=== PATIENT | male | born 1965 | race Caucasian/White ===

== ENCOUNTER 2019-07-06 13:44 | Outpatient (CLI) | payer OTHER | END 2019-07-06 13:45 | disposition home or self-care (01) | LOC: COV 13:44 | PROVIDERS: ATTEND Family Medicine | DX: R05 Cough (principal); R50.9 Fever, unspecified | CPT/HCPCS: 81599 ==

== ENCOUNTER 2020-10-07 16:29 | Outpatient (CLI) | payer OTHER | END 2020-10-07 16:30 | disposition home or self-care (01) | LOC: COV 16:29 | PROVIDERS: ATTEND Family Medicine | DX: R50.9 Fever, unspecified (principal); M79.10 Myalgia, unspecified site; R53.83 Other fatigue; Z20.822 Contact with and (suspected) exposure to COVID-19 ==

== ENCOUNTER 2020-10-11 09:49 | Outpatient (CLI) | payer OTHER ==
--- NOTE | 2020-10-11 10:02 | XRAY Report ---
PROCEDURE: Chest 2 View X-Ray INDICATIONS: RIGHT LOWER PNEUMONIA TECHNIQUE: 2 view(s) of the chest. COMPARISON: None. FINDINGS: Surgical changes and devices: None. Lungs and pleura: No pleural effusions or pneumothorax. Ill-defined airspace opacity is seen in righ t lower lobe. Left lung is clear. Mediastinum: Mediastinal contours are normal. Heart size is normal. Bones and chest wall: No suspicious bony abnormalities. Soft tissues appear unremarkable. IMPRESSION: Small to moderate size right lower lobe infiltrate. No pleural effusion or pneumothorax. Reviewed by: Bernardo Banuelos MD on 10/11/2020 10:01 AM PDT Approved by: Bernardo Banuelos MD on 10/11/2020 10:01 AM PDT Station ID: [id number]
== END 2020-10-11 23:59 | disposition home or self-care (01) ==
LOC: DI.S 09:49
PROVIDERS: ATTEND Emergency Medicine
DX: J18.9 Pneumonia, unspecified organism (principal)

== ENCOUNTER 2020-10-11 21:22 | Inpatient (IN) | payer OTHER ==
--- NOTE | 2020-10-11 21:34 | ED Physician Documentation ---
PD HPI URI - Stated complaint Stated Complaint: SOA, FEVER, DIZZY - Chief complaint Chief Complaint: Fever - History obtained from History obtained from: Patient - History of Present Illness Timing - onset: How many days ago (5-6) Timing duration: Days (5-6) Timing details: Gradual onset, Still present Associated symptoms: Fever, Chills, Dry cough, Dyspnea. No: Chest pain, NVD Contributing factors: Other (denies cleaning out sheds/basement/etc, nor any travel.). No: Sick contact, Travel, Immunocompromised, COPD / asthma Improves by: Rest, Medication Worsened by: Breathing Similar symptoms before: Has not had sx before Recently seen: Clinic (walk in this morning with CXR showing pneumonia, Given IM med in clinic and Rx for some abx BID.) Review of Systems Constitutional: reports: Fever, Chills, Myalgias, Fatigue Nose: denies: Rhinorrhea / runny nose, Congestion Throat: denies: Sore throat Cardiac: denies: Chest pain / pressure Respiratory: reports: Dyspnea, Cough, Wheezing GI: reports: Nausea, Vomiting. denies: Abdominal Pain, Constipation, Diarrhea Skin: denies: Rash, Lesions Neurologic: reports: Generalized weakness, Confused, Altered mental status. denies: Near syncope, Headache, Head injury PD PAST MEDICAL HISTORY - Past Medical History Cardiovascular: None Respiratory: None Neuro: None Endocrine/Autoimmune: None - Allergies Allergies/Adverse Reactions: Allergies Allergy/AdvReac Type Severity Reaction Status Date / Time No Known Drug Allergies Allergy Verified 10/11/20 21:27 - Living Situation Living Situation: reports: With spouse/s.o., Other (usually active and healthy. Works as teacher. ) Living Arrangement: reports: At home - Social History Does the pt smoke?: No Does the pt drink ETOH?: No Does the pt have substance abuse?: No - Family History Family history: denies: CAD - POLST POLST Status: Full Code PD ED PE NORMAL - Vitals Vital signs reviewed: Yes (hypoxic and needs 4 lpm NC for sats >92%) - General General: Alert and oriented X 3, Well developed/nourished, Other (some somnolent and sluggish to answer questions. Does not appear in pain. ) - HEENT HEENT: Atraumatic, Ears normal, Moist mucous membranes, Pharynx benign - Neck Neck: Supple, no meningeal sign, No adenopathy - Cardiac Cardiac: RRR (tachycardic but regular. ), No murmur - Respiratory Respiratory: No: Clear bilaterally (expiratory wheezing at end expirations. Tachypneic. No accessory muscle use though. ) - Abdomen Abdomen: Soft, Non tender, Non distended - Back Back: No CVA TTP - Derm Derm: Normal color, Warm and dry - Extremities Extremities: No deformity, No tenderness to palpate, Normal ROM s pain, No edema, No calf tenderness / cord - Neuro Neuro: Alert and oriented X 3 (though sluggish/slow to answer), No motor deficit, No sensory deficit Results - Vitals Vitals: Vital Signs - 24 hr 10/11/20 10/11/20 10/11/20 21:27 21:31 22:16 Temperature 38.7 C H 38.7 C H Heart Rate 115 H 115 H 90 Respiratory 24 24 21 Rate Blood Pressure 164/85 H 164/85 H 163/84 H O2 Saturation 96 96 96 10/11/20 10/11/20 10/11/20 22:24 22:40 22:44 Temperature 37.4 C Heart Rate 88 92 Respiratory 26 H 20 Rate Blood Pressure 163/84 H 148/79 H O2 Saturation 95 96 10/11/20 10/11/20 22:46 23:00 Temperature Heart Rate 76 86 Respiratory 18 31 H Rate Blood Pressure 148/79 H O2 Saturation 95 Oxygen O2 Source Room air - Labs Labs: Laboratory Tests 10/11/20 10/11/20 10/11/20 21:45 21:45 21:45 WBC 12.2 H RBC 4.20 L Hgb 13.3 L Hct 35.9 L MCV 85.5 MCH 31.7 H MCHC 37.0 H RDW 11.3 L Plt Count 185 MPV 10.4 Neut # (Auto) 10.6 H Lymph # (Auto) 0.6 L [place] # (Auto) 0.7 Eos # (Auto) 0.0 Baso # (Auto) 0.1 Absolute Nucleated RBC 0.00 Nucleated RBC % 0.0 Sodium 112 L* Potassium 3.3 L Chloride 82 L Carbon Dioxide 17 L Anion Gap 13.0 BUN 11 Creatinine 1.0 Estimated GFR (MDRD) 78 L Glucose 127 H Lactic Acid 1.5 Calcium 7.9 L Total Bilirubin 1.2 H AST 217 H ALT 89 H Alkaline Phosphatase 71 C-Reactive Protein Total Protein 6.9 Albumin 3.3 Globulin 3.6 Albumin/Globulin Ratio 0.9 L Urine Color Urine Clarity Urine pH Ur Specific [place] Urine Protein Urine Glucose (UA) Urine Ketones Urine Occult Blood Urine Nitrite Urine Bilirubin Urine Urobilinogen Ur Leukocyte Esterase Urine RBC Urine WBC Ur Squamous Epith Cells Urine Bacteria Urine Casts Urine Culture Comments Nasal Adenovirus (PCR) Nasal B. parapertussis DNA (PCR) Nasal Coronavir 229E PCR Nasal Coronavir HKU1 PCR Nasal Coronavir NL63 PCR Nasal Coronavir OC43 PCR Nasal Enterovir/Rhinovir PCR Nasal Influenza B PCR Nasal Influenza A PCR Nasal Parainfluen 1 PCR Nasal Parainfluen 2 PCR Nasal Parainfluen 3 PCR Nasal Parainfluen 4 PCR Nasal RSV (PCR) Nasal B.pertussis DNA PCR Nasal C.pneumoniae (PCR) Adam Human Metapneumo PCR Nasal M.pneumoniae (PCR) Nasal SARS-CoV-2 (PCR) 10/11/20 10/11/20 10/11/20 21:45 22:34 22:50 WBC RBC Hgb Hct MCV MCH MCHC RDW Plt Count MPV Neut # (Auto) Lymph # (Auto) [place] # (Auto) Eos # (Auto) Baso # (Auto) Absolute Nucleated RBC Nucleated RBC % Sodium Potassium Chloride Carbon Dioxide Anion Gap BUN Creatinine Estimated GFR (MDRD) Glucose Lactic Acid Calcium Total Bilirubin AST ALT Alkaline Phosphatase C-Reactive Protein 25.3 H Total Protein Albumin Globulin Albumin/Globulin Ratio Urine Color YELLOW Urine Clarity CLEAR Urine pH 6.0 Ur Specific [place] 1.010 Urine Protein 100 H Urine Glucose (UA) NEGATIVE Urine Ketones 40 H Urine Occult Blood LARGE H Urine Nitrite NEGATIVE Urine Bilirubin NEGATIVE Urine Urobilinogen 0.2 (NORMAL) Ur Leukocyte Esterase NEGATIVE Urine RBC 0-5 Urine WBC 0-3 Ur Squamous Epith Cells RARE Squamous Urine Bacteria Rare Urine Casts 3-5 Course Granular Urine Culture Comments NOT INDICATED Nasal Adenovirus (PCR) NOT DETECTED Nasal B. parapertussis DNA (PCR) NOT DETECTED Nasal Coronavir 229E PCR NOT DETECTED Nasal Coronavir HKU1 PCR NOT DETECTED Nasal Coronavir NL63 PCR NOT DETECTED Nasal Coronavir OC43 PCR NOT DETECTED Nasal Enterovir/Rhinovir PCR DETECTED A Nasal Influenza B PCR NOT DETECTED Nasal Influenza A PCR NOT DETECTED Nasal Parainfluen 1 PCR NOT DETECTED Nasal Parainfluen 2 PCR NOT DETECTED Nasal Parainfluen 3 PCR NOT DETECTED Nasal Parainfluen 4 PCR NOT DETECTED Nasal RSV (PCR) NOT DETECTED Nasal B.pertussis DNA PCR NOT DETECTED Nasal C.pneumoniae (PCR) NOT DETECTED Adam Human Metapneumo PCR NOT DETECTED Nasal M.pneumoniae (PCR) NOT DETECTED Nasal SARS-CoV-2 (PCR) NOT DETECTED - Rads (name of study) chest xray Radiology: Prelim report reviewed (increasing RLL pneumonia.), See rad report PD MEDICAL DECISION MAKING - ED course Complexity details: reviewed results (sodium very low, so I changed the fluid bolus order to small bolus and then maintenance fluids.), considered differential (seems pneumonia and SIRS/sepsis. Also confused but no headache. ), d/w patient Departure - Departure Disposition: 66 [facility] DC/Xfer Clinical Impression: Acute hyponatremia, SIRS (systemic inflammatory response syndrome) Pneumonia Qualifiers: Pneumonia type: due to unspecified organism Laterality: right Lung location: lower lobe of lung Qualified Code(s): J18.9 - Pneumonia, unspecified organism Condition: Stable Record reviewed to determine appropriate education?: Yes Discharge Date/Time: 10/12/20 00:10
[2020-10-11] MEDS ORDERED: SODIUM CHLORIDE 0.9% IV STA (21:54)
[2020-10-11] MEDS ORDERED: cefTRIAXone 1 GM in SODIUM CHLORIDE 0.9% MINIBAG 100 ML IV STA (21:54)
[2020-10-11] MEDS ORDERED: AZITHROMYCIN INJ 500 MG in SODIUM CHLORIDE 0.9% 250 ML IV STA (21:54)
[2020-10-11] MEDS ORDERED: DEXAMETHASONE 10 MG/ML VIAL IVP STA (21:55)
[2020-10-11] MEDS ORDERED: ALBUTEROL NEB 2.5 MG/3 ML INH STA (21:55)
[2020-10-11] MEDS ORDERED: ACETAMINOPHEN 325 MG TABLET PO STA (21:56)
[2020-10-11] MEDS ORDERED: KETOROLAC 30 MG/ML VIAL IVP STA (21:56)
[2020-10-11] MEDS ORDERED: cefTRIAXone 1 GM VIAL ONE (22:03)
[2020-10-11 22:05] LABS: BASOPHILS # (AUTO) 0.1 10^3/uL (0.0-0.1); BASOPHILS % (AUTO) 0.5 %; EOSINOPHILS % (AUTO) 0.1 %; HCT - HEMATOCRIT 35.9 % (42.0-52.0); HGB - HEMOGLOBIN 13.3 g/dL (14.0-18.0); LYMPHOCYTES # (AUTO) 0.6 10^3/uL (1.5-3.5); LYMPHOCYTES % (AUTO) 4.8 %; MEAN CORPUSCULAR HEMOGLOBIN 31.7 pg (27.0-31.0); MEAN CORPUSCULAR VOLUME 85.5 fL (80.0-94.0); MEAN PLATELET VOLUME 10.4 fL (7.4-11.4); MONOCYTES # (AUTO) 0.7 10^3/uL (0.0-1.0); MONOCYTES % (AUTO) 5.7 %; NEUTROPHILS # (AUTO) 10.6 10^3/uL (1.5-6.6); NEUTROPHILS % (AUTO) 86.9 %; PLT - PLATELET COUNT 185 10^3/uL (130-450); RED CELL DISTRIBUTION WIDTH 11.3 % (12.0-15.0); WHITE BLOOD COUNT 12.2 x10^3/uL (4.8-10.8)
[2020-10-11 22:15] LABS: ALBUMIN 3.3 g/dL (3.2-5.5); ALBUMIN/GLOBULIN RATIO 0.9 (1.0-2.2); BILIRUBIN,TOTAL 1.2 mg/dL (0.2-1.0); CALCIUM 7.9 mg/dL (8.5-10.3); POTASSIUM 3.3 mmol/L (3.5-5.0); TOTAL PROTEIN 6.9 g/dL (6.7-8.2)
[2020-10-11] MEDS ORDERED: SODIUM CHLORIDE 0.9% 1,000 ML IV STA ×2 (22:36)
[2020-10-11] MEDS ORDERED: ONDANSETRON 4 MG/2 ML VIAL IVP PRN (23:03)
[2020-10-11] MEDS ORDERED: ACETAMINOPHEN 325 MG TABLET PO PRN (23:03)
[2020-10-11] MEDS ORDERED: ONDANSETRON ODT 4 MG TABLET TL PRN (23:03)
[2020-10-11 23:05] LABS: BILIRUBIN,URINE NEGATIVE (NEGATIVE); GLUCOSE, URINE (UA) NEGATIVE (NEGATIVE); KETONES,URINE (UA) 40 mg/dL (NEGATIVE); LEUKOCYTE ESTERASE, URINE NEGATIVE (NEGATIVE); NITRITE,URINE NEGATIVE (NEGATIVE); OCCULT BLOOD,URINE LARGE (NEGATIVE); PROTEIN,URINE 100 mg/dL (NEGATIVE); UROBILINOGEN,URINE 0.2 (NORMAL) E.U./dL (NORMAL)
[2020-10-11] MEDS ORDERED: POTASSIUM CHLORIDE 20 MEQ TABLET PO STA (23:06)
[2020-10-11 23:07] LABS: CLARITY,URINE CLEAR (CLEAR)
--- NOTE | 2020-10-11 23:07 | HISTORY & PHYSICAL EXAMINATION ---
Chief Complaint - Chief Complaint Chief Complaint: Feel ill. History of Present Illness - Admitted From Admitted From:: Home - History Obtained From Records Reviewed: Yes History obtained from: Patient, ER Physician, EMR - History of Present Illness HPI Comment/Other: This is a 55-year-old male with no significant past medical history who presents today complaining of feeling ill for the past 5 days. He states his symptoms began on Wednesday with fevers and chills. He was tested for Covid 2 days ago and this came back negative. He reports receiving the Sami & Sami vaccine a few months ago. He denies feeling short of breath but does report a cough. He has had associated fatigue, malaise. He reports no nausea or vomiting but has been having diarrhea the past few days as well. He is having 2-3 liquid bowel movements a day. He reports no chest pain, dysuria, urgency. He has had poor appetite and poor oral intake over the past few days as well. He has been taking Tylenol as needed for his fevers. Given his lack of improvement, he decided to come to the ER today. He reports no recent sick contacts. His and daughter at home are not ill. 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 In the emergency department, he was found to be febrile with a temperature of 38.7 C. He is tachycardic with a heart rate in the 110s. His blood pressure was 134/85. He was tachypneic with respiratory rate in the mid to high 20s but he was saturating well on room air. Labs were significant for white count of 12.2 with a left shift. His sodium was 112, potassium 3.3, chloride 82, bicarbonate 17. His total bilirubin was 1.2, AST 217, ALT 89. Chest x-ray revealed a right lower lobe infiltrate. Given the above findings, medicine was consulted for admission. History - Past Medical History Cardiovascular: reports: None Respiratory: reports: None Neuro: reports: None - Family & Social History Family History Comment/Other: He reports no significant family history to his knowledge. Denies a family history of cardiac disease or malignancy. Living arrangement: At home Living Situation: With family Social History Notes: He lives at home with his and daughter. 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 He denies any alcohol use. He reports a remote smoking history back in the 90s. - POLST Patient has POLST: No Meds/Allgy - Allergies Allergies/Adverse Reactions: Allergies Allergy/AdvReac Type Severity Reaction Status Date / Time No Known Drug Allergies Allergy Verified 10/11/20 21:27 Review of Systems - Constitutional Constitutional: reports: Fatigue, Fever, Chills, Malaise, Weakness, Poor appetite, Diaphoresis - Ears, Nose & Throat Ears, Nose & Throat: denies: Nasal discharge, Nasal congestion, Sore throat - Cardiovascular Cariovascular: denies: Chest pain, Edema, Exertional dyspnea, Decr. exercise tolerance - Respiratory Respiratory: reports: Cough. denies: Sputum production, SOB at rest, SOB with exertion - Gastrointestinal Gastrointestinal: reports: Diarrhea, Change in bowel habits, Poor appetite. denies: Abdominal pain, Black stools, Bloody stools, Nausea, Vomiting - Genitourinary Genitourinary: denies: Dysuria, Frequency, Urgency, Hematuria - Integumentary Integumentary: denies: Rash - Neurological Neurological: reports: General weakness. denies: Focal weakness - Hematologic/Lymphatic Hematologic/Lymphatic: denies: Bleeding tendencies - All Other Systems All Other Systems: reports: Reviewed and negative Prior Level of Functionality: He is independent with his ADLs. Exam - Vital Signs Reviewed Vital Signs: Yes Vital Signs: Vital Signs x48h Temp Pulse Resp BP Pulse Ox 10/11/20 23:00 86 31 H 148/79 H 95 10/11/20 22:46 76 18 10/11/20 22:44 96 10/11/20 22:40 92 20 148/79 H 10/11/20 22:24 37.4 C 88 26 H 163/84 H 95 10/11/20 22:16 90 21 163/84 H 96 10/11/20 21:31 38.7 C H 115 H 24 164/85 H 96 10/11/20 21:27 38.7 C H 115 H 24 164/85 H 96 - Physical Exam General Appearance: positive: Alert, Mild distress, Other (He is alert but does appear in some distress and appears ill overall. He is very diaphoretic.) Eyes Bilateral: positive: Normal inspection, Conjunctivae nml ENT: positive: Dry mucous membranes. negative: No signs of dehydration Neck: positive: Nml inspection Respiratory: positive: Rhonchi (Right lung field.), Other (He is tachypneic and in mild distress.). negative: No respiratory distress (He appears in mild respiratory distress), Wheezes, Rales Cardiovascular: positive: Regular rate & rhythm, No murmur. negative: Tachycardia, Systolic murmur Abdomen: positive: Non-tender, No distention. negative: Tenderness, Guarding, Rebound Skin: positive: Warm, Dry Extremities: positive: No pedal edema Neurologic/Psychiatric: positive: Other (No focal deficits.). negative: Disoriented to person, Disoriented to place, Disoriented to time Sepsis Event Note (H) - Evaluation Current Stage of Sepsis: Sepsis Possible source of Sepsis: positive: Pulmonary - Sepsis Criteria Sepsis Criteria: Recorded Temperature greater than 38.3C or Less than 36C, Recorded Heart Rate greater than 90 bpm, WBC count greater than 12,000 or less than 4000 Conclusion/Plan - Problem List (1) Sepsis Conclusion/Plan: This is secondary to community-acquired pneumonia. He presents with fever, tachycardia, leukocytosis. He is fortunately hemodynamically stable now and is actually hypertensive and his heart rate is improved. Lactic acid is normal. Blood cultures have been ordered and are pending. We will place him on ceftriaxone and azithromycin IV empirically for community-acquired pneumonia. Continue with gentle IV hydration. Follow-up blood cultures. Daily CBC. (2) Community acquired pneumonia Conclusion/Plan: This is the cause of his sepsis. There is high suspicion for Legionella given h is significant hyponatremia, elevated LFTs. His chest x-ray reveals a right lower lobe infiltrate. Fortunately, he is not hypoxic. We will place him on ceftriaxone and azithromycin IV empirically. Respiratory PCR panel is pending but he had a negative Covid test 2 days ago so low suspicion for this at the moment. We will check Legionella urine antigen. Monitor respiratory status closely. Qualifiers: Laterality: right Lung location: lower lobe of lung Qualified Code(s): J18.9 - Pneumonia, unspecified organism (3) Hyponatremia Conclusion/Plan: I suspect this is likely hypovolemic hyponatremia at this time given his lack of p.o. intake and he appears hypovolemic on exam. Although there is suspicion for Legionella and this can cause SIADH, we will gently hydrate him with normal saline at this time. We will repeat a BMP in 6 hours. If his sodium is trending in the wrong direction then we will hold IV fluids and place him on a fluid restriction and consider salt tablets. We will check a urine sodium. We will not obtain a urine osmolality as this is a send out lab and will not be available for a few days. (4) Abnormal LFTs Conclusion/Plan: His LFTs are elevated and this is suspected to be secondary to his pneumonia with a high suspicion for Legionnaire's disease. We will trend his LFTs and if they continue to rise we will obtain a right upper quadrant ultrasound. - Lab Results Lab results reviewed: Yes Fish Bones: 10/11/20 21:45 10/11/20 21:45 - Diagnostic Imaging Results Diagnostic Imaging Results: positive: Final report reviewed Core Measures - Anticipated LOS I expect patient to be DC'd or transferred within 96 hours.: Yes - Issues Hospital Issues and Management Plan: 55-year-old male presents with malaise and fever found to have right lower lobe pneumonia and hyponatremia. Concern is for Legionella and so we will admit him to intensive care unit for IV antibiotics with ceftriaxone and azithromycin. We will gently hydrate him for the hyponatremia at this time. - DVT/VTE - Prophylaxis VTE/DVT Device ordered at admit?: Yes VTE/DVT Prophylaxis med ordered at admit?: Yes
[2020-10-11 23:13] LABS: WBC,URINE 0-3 /HPF (0-3)
[2020-10-11 23:14] LABS: BACTERIA,URINE Rare /HPF (None Seen); CASTS, URINE 3-5 Course Granular /LPF; RBC,URINE 0-5 /HPF (0-5); SQUAMOUS EPITHELIAL CELL,UR RARE Squamous (<= Few)
[2020-10-11 23:31] LABS: B. PARAPERTUSSIS- RESP PCR PAN NOT DETECTED; B. PERTUSSIS- RESP PCR PANEL NOT DETECTED; C. PNEUMONIAE- RESP PCR PANEL NOT DETECTED; CORONAVIRUS 229E-RESP PCR NOT DETECTED; CORONAVIRUS HKU1-RESP PCR NOT DETECTED; CORONAVIRUS NL63-RESP PCR NOT DETECTED; CORONAVIRUS OC43-RESP PCR NOT DETECTED; HUMAN METAPNEUMOVIRUS NOT DETECTED; INFLUENZA A- RESP PCR PANEL NOT DETECTED; INFLUENZA B - RESP PCR PANEL NOT DETECTED; M. PNEUMONIAE- RESP PCR PANEL NOT DETECTED; PARAINFLUENZA VIRUS 1 NOT DETECTED; PARAINFLUENZA VIRUS 2 NOT DETECTED; PARAINFLUENZA VIRUS 3 NOT DETECTED; PARAINFLUENZA VIRUS 4 NOT DETECTED; RHINOVIRUS/ENTEROVIRUS DETECTED; RSV- RESP PCR PANEL NOT DETECTED; SARS-CoV-2 -RESP PCR PANEL NOT DETECTED
[2020-10-11] MEDS ORDERED: IBUPROFEN 400 MG TABLET PO PRN (23:41)
[2020-10-11] MEDS ORDERED: SODIUM CHLORIDE 0.9% 1,000 ML IV SCH (23:45)
[2020-10-12 00:20] LABS: CALCIUM 7.5 mg/dL (8.5-10.3); URIC ACID 5.2 mg/dL (2.6-7.2)
[2020-10-12] MEDS ORDERED: POTASSIUM CHLORIDE 20 MEQ TABLET PO ONE ×2 (00:44→18:09)
[2020-10-12] MEDS ORDERED: CALCIUM GLUCONATE 1,000 MG in SODIUM CHLORIDE 0.9% 50 ML IV ONE (00:44)
[2020-10-12] MEDS ORDERED: CALCIUM GLUCONATE 1000 MG/10 ML VIAL ONE (00:58)
[2020-10-12] MEDS: SODIUM CHLORIDE FLUSH 0.9% 10 ML SYRINGE IVP SCH ×3 (04:45→16:19)
[2020-10-12 04:52] LABS: BASOPHILS % (AUTO) 0.4 %; EOSINOPHILS % (AUTO) 0.2 %; HCT - HEMATOCRIT 38.2 % (42.0-52.0); HGB - HEMOGLOBIN 13.7 g/dL (14.0-18.0); LYMPHOCYTES # (AUTO) 0.6 10^3/uL (1.5-3.5); LYMPHOCYTES % (AUTO) 5.3 %; MEAN CORPUSCULAR HEMOGLOBIN 31.6 pg (27.0-31.0); MEAN CORPUSCULAR HGB CONC 35.9 g/dL (32.0-36.0); MEAN CORPUSCULAR VOLUME 88.2 fL (80.0-94.0); MEAN PLATELET VOLUME 10.5 fL (7.4-11.4); MONOCYTES # (AUTO) 0.4 10^3/uL (0.0-1.0); MONOCYTES % (AUTO) 3.9 %; NEUTROPHILS # (AUTO) 9.8 10^3/uL (1.5-6.6); NEUTROPHILS % (AUTO) 88.3 %; PLT - PLATELET COUNT 159 10^3/uL (130-450); RED BLOOD COUNT 4.33 10^6/uL (4.70-6.10); RED CELL DISTRIBUTION WIDTH 11.3 % (12.0-15.0); WHITE BLOOD COUNT 11.1 x10^3/uL (4.8-10.8)
[2020-10-12 05:07] LABS: ALBUMIN 3.3 g/dL (3.2-5.5); BILIRUBIN,DIRECT 0.2 mg/dL (0.1-0.5); BILIRUBIN,TOTAL 0.9 mg/dL (0.2-1.0); CALCIUM 8.1 mg/dL (8.5-10.3); CREATININE 0.9 mg/dL (0.6-1.2); MAGNESIUM 2.5 mg/dL (1.7-2.8); PHOSPHORUS 2.8 mg/dL (2.5-4.6); POTASSIUM 3.5 mmol/L (3.5-5.0); TOTAL PROTEIN 6.9 g/dL (6.7-8.2)
--- NOTE | 2020-10-12 08:22 | XRAY Report ---
PROCEDURE: Chest 1 View X-Ray INDICATIONS: chest pain TECHNIQUE: One view of the chest was acquired. COMPARISON: Earlier on 10/11/2020 FINDINGS: Surgical changes and devices: None. Lungs and pleura: No pleural effusions or pneumothorax. Worsening consolidation, right lung base. Mediastinum: Mediastinal contours appear normal. Heart size is normal. Bones and chest wall: No suspicious bony lesions. Overlying soft tissues appear unremarkable. IMPRESSION: Worsening right basilar pneumonia. A preliminary report with the above findings was provided at the time of the study by [facility]. Reviewed by: Shayan Ann MD on 10/12/2020 7:21 AM MELVIN Approved by: Shayan Ann MD on 10/12/2020 7:21 AM MELVIN Station ID: [id number]
[2020-10-12] MEDS: ENOXAPARIN 40 MG/0.4 ML SYRINGE SUBQ SCH (08:31)
[2020-10-12 10:10] LABS: CALCIUM 8.4 mg/dL (8.5-10.3); CREATININE 0.9 mg/dL (0.6-1.2); POTASSIUM 3.6 mmol/L (3.5-5.0)
--- NOTE | 2020-10-12 11:53 | PHARMACY PROGRESS NOTE ---
- Best Possible Medication History Admit Date and Time: 10/11/20 1815 Processed by: Pharmacy Medication History completed: Yes Patient Interview: Completed Secondary Source(s): Other family member, Pharmacy records As the person ultimately responsible for medication therapy, providers are able to order a medication from an existing home medication list in [facility] via the "Reconcile Routine" prior to Confirmation of that medication by production support manager. Such practice is discouraged except when the physician, in their clinical judgment, deems that a medical need exists for a medication without regard to previous use.
--- NOTE | 2020-10-12 13:10 | PROVIDER PROGRESS NOTE ---
Subjective - Prog Note Date Prog Note Date: 10/12/20 Prog Note Time: 13:09 - Subjective Pt reports feeling: Improved (Biggest complaint is a discomfort due to hyperactive bowel activity. But he does deny abdominal pain, nausea or vomiting.) Subjective: Interestingly, despite the diagnosis of pneumonia, he denies any cough, shor tness of breath or other respiratory symptoms. Current Medications - Current Medications Current Medications: Current Medications Generic Name Dose Route Start Last Admin Trade Name Freq PRN Reason Stop Dose Admin Enoxaparin Sodium 40 mg 10/12/20 09:00 10/12/20 08:31 Enoxaparin 40 Mg/0.4 Ml Syringe SUBQ 40 mg DAILY SILVANA Administration Sodium Chloride 10 ml 10/12/20 01:00 10/12/20 08:33 Sodium Chloride Flush 0.9% 10 Ml Syringe IVP Not Given 0100,0900,1700 SILVANA Objective - Vital Signs/Intake & Output Reviewed Vital Signs: Yes Vital Signs: Vital Signs x48h Temp Pulse Resp BP Pulse Ox 10/12/20 12:00 88 22 142/94 H 98 10/12/20 11:00 76 20 118/94 H 100 10/12/20 10:00 71 15 118/84 H 100 10/12/20 08:00 79 23 130/87 H 98 10/12/20 07:51 64 17 148/86 H 98 10/12/20 07:45 36.6 C 10/12/20 06:00 64 23 162/97 H 98 Intake & Output: Intake & Output 10/09/20 10/10/20 10/11/20 10/12/20 23:59 23:59 23:59 23:59 Intake Total 1200 7447.433 Output Total 3100 Balance 1200 4347.433 - Objective General Appearance: positive: No acute distress, Lethargic (Was sleeping deeply when I arrived to examine him, but he did wake up and arouse appropriately.) Eyes Bilateral: positive: Normal inspection ENT: positive: ENT inspection nml Neck: positive: Nml inspection Respiratory: positive: Chest non-tender Cardiovascular: positive: Regular rate & rhythm, No murmur, No gallop Abdomen: positive: Non-tender, No organomegaly. negative: Nml bowel sounds (Hypoactive bowel sounds), No distention (Mildly distended versus obese) Back: positive: Nml inspection Skin: positive: Color nml, No rash, Warm Neurologic/Psychiatric: positive: Oriented x3 - Lab Results Fish Bones: 10/12/20 04:20 10/12/20 09:55 Other Labs: Lab Results x24hrs 10/12/20 10/12/20 10/12/20 Range/Units 12:00 09:55 07:50 WBC (4.8-10.8) x10^3/uL RBC (4.70-6.10) 10^6/uL Hgb (14.0-18.0) g/dL Hct (42.0-52.0) % MCV (80.0-94.0) fL MCH (27.0-31.0) pg MCHC (32.0-36.0) g/dL RDW (12.0-15.0) % Plt Count (130-450) 10^3/uL MPV (7.4-11.4) fL Neut # (Auto) (1.5-6.6) 10^3/uL Lymph # (Auto) (1.5-3.5) 10^3/uL [facility] [place] # (Auto) (0.0-1.0) 10^3/uL Eos # (Auto) (0.0-0.7) 10^3/uL Baso # (Auto) (0.0-0.1) 10^3/uL Absolute Nucleated RBC x10^3/uL Nucleated RBC % /100WBC Sodium 124 L (135-145) mmol/L Potassium 3.6 (3.5-5.0) mmol/L Chloride 94 L (101-111) mmol/L Carbon Dioxide 22 (21-32) mmol/L Anion Gap 8.0 (6-13) BUN 14 (6-20) mg/dL Creatinine 0.9 (0.6-1.2) mg/dL Estimated GFR (MDRD) 88 L (>89) Glucose 207 H (70-100) mg/dL POC Whole Bld Glucose 195 H 134 H (70 - 100) mg/dL Lactic Acid (0.5-2.2) mmol/L Uric Acid (2.6-7.2) mg/dL Calcium 8.4 L (8.5-10.3) mg/dL Phosphorus (2.5-4.6) mg/dL Magnesium (1.7-2.8) mg/dL Total Bilirubin (0.2-1.0) mg/dL Direct Bilirubin (0.1-0.5) mg/dL AST (10-42) IU/L ALT (10-60) IU/L Alkaline Phosphatase (42-121) IU/L C-Reactive Protein (0-1.0) mg/dL Total Protein (6.7-8.2) g/dL Albumin (3.2-5.5) g/dL Globulin (2.1-4.2) g/dL Albumin/Globulin Ratio (1.0-2.2) Urine Color Urine Clarity (CLEAR) Urine pH (5.0-7.5) PH Ur Specific [place] (1.002-1.030) Urine Protein (NEGATIVE) mg/dL Urine Glucose (UA) (NEGATIVE) mg/dL Urine Ketones (NEGATIVE) mg/dL Urine Occult Blood (NEGATIVE) Urine Nitrite (NEGATIVE) Urine Bilirubin (NEGATIVE) Urine Urobilinogen (NORMAL) E.U./dL Ur Leukocyte Esterase (NEGATIVE) Urine RBC (0-5) /HPF Urine WBC (0-3) /HPF Ur Squamous Epith Cells (<= Few) Urine Bacteria (None Seen) /HPF Urine Casts /LPF Urine Culture Comments Urine Sodium mmol/L Nasal Adenovirus (PCR) Nasal B. parapertussis DNA (PCR) Nasal Coronavir 229E PCR Nasal Coronavir HKU1 PCR Nasal Coronavir NL63 PCR Nasal Coronavir OC43 PCR Nasal Enterovir/Rhinovir PCR Nasal Influenza B PCR Nasal Influenza A PCR Nasal Parainfluen 1 PCR Nasal Parainfluen 2 PCR Nasal Parainfluen 3 PCR Nasal Parainfluen 4 PCR Nasal RSV (PCR) Nasal Screen MRSA (PCR) (NEGATIVE) Nasal B.pertussis DNA PCR Nasal C.pneumoniae (PCR) Adam Human Metapneumo PCR Nasal M.pneumoniae (PCR) Nasal SARS-CoV-2 (PCR) 10/12/20 10/12/20 10/12/20 Range/Units 04:20 04:20 04:00 WBC 11.1 H (4.8-10.8) x10^3/uL RBC 4.33 L (4.70-6.10) 10^6/uL Hgb 13.7 L (14.0-18.0) g/dL Hct 38.2 L (42.0-52.0) % MCV 88.2 (80.0-94.0) fL MCH 31.6 H (27.0-31.0) pg MCHC 35.9 (32.0-36.0) g/dL RDW 11.3 L (12.0-15.0) % Plt Count 159 (130-450) 10^3/uL MPV 10.5 (7.4-11.4) fL Neut # (Auto) 9.8 H (1.5-6.6) 10^3/uL Lymph # (Auto) 0.6 L (1.5-3.5) 10^3/uL [facility] [place] [facility] # (Auto) 0.4 (0.0-1.0) 10^3/uL Eos # (Auto) 0.0 (0.0-0.7) 10^3/uL Baso # (Auto) 0.0 (0.0-0.1) 10^3/uL Absolute Nucleated RBC 0.00 x10^3/uL Nucleated RBC % 0.0 /100WBC Sodium 121 L (135-145) mmol/L Potassium 3.5 (3.5-5.0) mmol/L Chloride 90 L (101-111) mmol/L Carbon Dioxide 21 (21-32) mmol/L Anion Gap 10.0 (6-13) BUN 12 (6-20) mg/dL Creatinine 0.9 (0.6-1.2) mg/dL Estimated GFR (MDRD) 88 L (>89) Glucose 141 H (70-100) mg/dL POC Whole Bld Glucose (70 - 100) mg/dL Lactic Acid (0.5-2.2) mmol/L Uric Acid (2.6-7.2) mg/dL Calcium 8.1 L (8.5-10.3) mg/dL Phosphorus 2.8 (2.5-4.6) mg/dL Magnesium 2.5 (1.7-2.8) mg/dL Total Bilirubin 0.9 (0.2-1.0) mg/dL Direct Bilirubin 0.2 (0.1-0.5) mg/dL AST 229 H (10-42) IU/L ALT 99 H (10-60) IU/L Alkaline Phosphatase 71 (42-121) IU/L C-Reactive Protein (0-1.0) mg/dL Total Protein 6.9 (6.7-8.2) g/dL Albumin 3.3 (3.2-5.5) g/dL Globulin 3.6 (2.1-4.2) g/dL Albumin/Globulin Ratio (1.0-2.2) Urine Color Urine Clarity (CLEAR) Urine pH (5.0-7.5) PH Ur Specific [place] (1.002-1.030) Urine Protein (NEGATIVE) mg/dL Urine Glucose (UA) (NEGATIVE) mg/dL Urine Ketones (NEGATIVE) mg/dL Urine Occult Blood (NEGATIVE) Urine Nitrite (NEGATIVE) Urine Bilirubin (NEGATIVE) Urine Urobilinogen (NORMAL) E.U./dL Ur Leukocyte Esterase (NEGATIVE) Urine RBC (0-5) /HPF Urine WBC (0-3) /HPF Ur Squamous Epith Cells (<= Few) Urine Bacteria (None Seen) /HPF Urine Casts /LPF Urine Culture Comments Urine Sodium < 12.0 mmol/L Nasal Adenovirus (PCR) Nasal B. parapertussis DNA (PCR) Nasal Coronavir 229E PCR Nasal Coronavir HKU1 PCR Nasal Coronavir NL63 PCR Nasal Coronavir OC43 PCR Nasal Enterovir/Rhinovir PCR Nasal Influenza B PCR Nasal Influenza A PCR Nasal Parainfluen 1 PCR Nasal Parainfluen 2 PCR Nasal Parainfluen 3 PCR Nasal Parainfluen 4 PCR Nasal RSV (PCR) Nasal Screen MRSA (PCR) (NEGATIVE) Nasal B.pertussis DNA PCR Nasal C.pneumoniae (PCR) Adam Human Metapneumo PCR Nasal M.pneumoniae (PCR) Nasal SARS-CoV-2 (PCR) 10/12/20 10/11/20 10/11/20 Range/Units 00:25 23:59 22:50 WBC (4.8-10.8) x10^3/uL RBC (4.70-6.10) 10^6/uL Hgb (14.0-18.0) g/dL Hct (42.0-52.0) % MCV (80.0-94.0) fL MCH (27.0-31.0) pg MCHC (32.0-36.0) g/dL RDW (12.0-15.0) % Plt Count (130-450) 10^3/uL MPV (7.4-11.4) fL Neut # (Auto) (1.5-6.6) 10^3/uL Lymph # (Auto) (1.5-3.5) 10^3/uL [facility] # (Auto) (0.0-1.0) 10^3/uL Eos # (Auto) (0.0-0.7) 10^3/uL Baso # (Auto) (0.0-0.1) 10^3/uL Absolute Nucleated RBC x10^3/uL Nucleated RBC % /100WBC Sodium 114 L* (135-145) mmol/L Potassium 3.0 L (3.5-5.0) mmol/L Chloride 85 L (101-111) mmol/L Carbon Dioxide 16 L (21-32) mmol/L Anion Gap 13.0 (6-13) BUN 11 (6-20) mg/dL Creatinine 1.0 (0.6-1.2) mg/dL Estimated GFR (MDRD) 78 L (>89) Glucose 128 H (70-100) mg/dL POC Whole Bld Glucose (70 - 100) mg/dL Lactic Acid (0.5-2.2) mmol/L Uric Acid 5.2 (2.6-7.2) mg/dL Calcium 7.5 L (8.5-10.3) mg/dL Phosphorus (2.5-4.6) mg/dL Magnesium (1.7-2.8) mg/dL Total Bilirubin (0.2-1.0) mg/dL Direct Bilirubin (0.1-0.5) mg/dL AST (10-42) IU/L ALT (10-60) IU/L Alkaline Phosphatase (42-121) IU/L C-Reactive Protein (0-1.0) mg/dL Total Protein (6.7-8.2) g/dL Albumin (3.2-5.5) g/dL Globulin (2.1-4.2) g/dL Albumin/Globulin Ratio (1.0-2.2) Urine Color YELLOW Urine Clarity CLEAR (CLEAR) Urine pH 6.0 (5.0-7.5) PH Ur Specific [place] 1.010 (1.002-1.030) Urine Protein 100 H (NEGATIVE) mg/dL Urine Glucose (UA) NEGATIVE (NEGATIVE) mg/dL Urine Ketones 40 H (NEGATIVE) mg/dL Urine Occult Blood LARGE H (NEGATIVE) Urine Nitrite NEGATIVE (NEGATIVE) Urine Bilirubin NEGATIVE (NEGATIVE) Urine Urobilinogen 0.2 (NORMAL) (NORMAL) E.U./dL Ur Leukocyte Esterase NEGATIVE (NEGATIVE) Urine RBC 0-5 (0-5) /HPF Urine WBC 0-3 (0-3) /HPF Ur Squamous Epith Cells RARE Squamous (<= Few) Urine Bacteria Rare (None Seen) /HPF Urine Casts 3-5 Course Granular /LPF Urine Culture Comments NOT INDICATED Urine Sodium mmol/L Nasal Adenovirus (PCR) Nasal B. parapertussis DNA (PCR) Nasal Coronavir 229E PCR Nasal Coronavir HKU1 PCR Nasal Coronavir NL63 PCR Nasal Coronavir OC43 PCR Nasal Enterovir/Rhinovir PCR Nasal Influenza B PCR Nasal Influenza A PCR Nasal Parainfluen 1 PCR Nasal Parainfluen 2 PCR Nasal Parainfluen 3 PCR Nasal Parainfluen 4 PCR Nasal RSV (PCR) Nasal Screen MRSA (PCR) NEGATIVE (NEGATIVE) Nasal B.pertussis DNA PCR Nasal C.pneumoniae (PCR) Adam Human Metapneumo PCR Nasal M.pneumoniae (PCR) Nasal SARS-CoV-2 (PCR) 10/11/20 10/11/20 10/11/20 Range/Units 22:34 21:45 21:45 WBC (4.8-10.8) x10^3/uL RBC (4.70-6.10) 10^6/uL Hgb (14.0-18.0) g/dL Hct (42.0-52.0) % MCV (80.0-94.0) fL MCH (27.0-31.0) pg MCHC (32.0-36.0) g/dL RDW (12.0-15.0) % Plt Count (130-450) 10^3/uL MPV (7.4-11.4) fL Neut # (Auto) (1.5-6.6) 10^3/uL Lymph # (Auto) (1.5-3.5) 10^3/uL [facility] # (Auto) (0.0-1.0) 10^3/uL Eos # (Auto) (0.0-0.7) 10^3/uL Baso # (Auto) (0.0-0.1) 10^3/uL Absolute Nucleated RBC x10^3/uL Nucleated RBC % /100WBC Sodium (135-145) mmol/L Potassium (3.5-5.0) mmol/L Chloride (101-111) mmol/L Carbon Dioxide (21-32) mmol/L Anion Gap (6-13) BUN (6-20) mg/dL Creatinine (0.6-1.2) mg/dL Estimated GFR (MDRD) (>89) Glucose (70-100) mg/dL POC Whole Bld Glucose (70 - 100) mg/dL Lactic Acid 1.5 (0.5-2.2) mmol/L Uric Acid (2.6-7.2) mg/dL Calcium (8.5-10.3) mg/dL Phosphorus (2.5-4.6) mg/dL Magnesium (1.7-2.8) mg/dL Total Bilirubin (0.2-1.0) mg/dL Direct Bilirubin (0.1-0.5) mg/dL AST (10-42) IU/L ALT (10-60) IU/L Alkaline Phosphatase (42-121) IU/L C-Reactive Protein 25.3 H (0-1.0) mg/dL Total Protein (6.7-8.2) g/dL Albumin (3.2-5.5) g/dL Globulin (2.1-4.2) g/dL Albumin/Globulin Ratio (1.0-2.2) Urine Color Urine Clarity (CLEAR) Urine pH (5.0-7.5) PH Ur Specific [place] (1.002-1.030) Urine Protein (NEGATIVE) mg/dL Urine Glucose (UA) (NEGATIVE) mg/dL Urine Ketones (NEGATIVE) mg/dL Urine Occult Blood (NEGATIVE) Urine Nitrite (NEGATIVE) Urine Bilirubin (NEGATIVE) Urine Urobilinogen (NORMAL) E.U./dL Ur Leukocyte Esterase (NEGATIVE) Urine RBC (0-5) /HPF Urine WBC (0-3) /HPF Ur Squamous Epith Cells (<= Few) Urine Bacteria (None Seen) /HPF Urine Casts /LPF Urine Culture Comments Urine Sodium mmol/L Nasal Adenovirus (PCR) NOT DETECTED Nasal B. parapertussis DNA (PCR) NOT DETECTED Nasal Coronavir 229E PCR NOT DETECTED Nasal Coronavir HKU1 PCR NOT DETECTED Nasal Coronavir NL63 PCR NOT DETECTED Nasal Coronavir OC43 PCR NOT DETECTED Nasal Enterovir/Rhinovir PCR DETECTED A Nasal Influenza B PCR NOT DETECTED Nasal Influenza A PCR NOT DETECTED Nasal Parainfluen 1 PCR NOT DETECTED Nasal Parainfluen 2 PCR NOT DETECTED Nasal Parainfluen 3 PCR NOT DETECTED Nasal Parainfluen 4 PCR NOT DETECTED Nasal RSV (PCR) NOT DETECTED Nasal Screen MRSA (PCR) (NEGATIVE) Nasal B.pertussis DNA PCR NOT DETECTED Nasal C.pneumoniae (PCR) NOT DETECTED Adam Human Metapneumo PCR NOT DETECTED Nasal M.pneumoniae (PCR) NOT DETECTED Nasal SARS-CoV-2 (PCR) NOT DETECTED 10/11/20 10/11/20 Range/Units 21:45 21:45 WBC 12.2 H (4.8-10.8) x10^3/uL RBC 4.20 L (4.70-6.10) 10^6/uL Hgb 13.3 L (14.0-18.0) g/dL Hct 35.9 L (42.0-52.0) % MCV 85.5 (80.0-94.0) fL MCH 31.7 H (27.0-31.0) pg MCHC 37.0 H (32.0-36.0) g/dL RDW 11.3 L (12.0-15.0) % Plt Count 185 (130-450) 10^3/uL MPV 10.4 (7.4-11.4) fL Neut # (Auto) 10.6 H (1.5-6.6) 10^3/uL Lymph # (Auto) 0.6 L (1.5-3.5) 10^3/uL [facility] [place] [facility] # (Auto) 0.7 (0.0-1.0) 10^3/uL Eos # (Auto) 0.0 (0.0-0.7) 10^3/uL Baso # (Auto) 0.1 (0.0-0.1) 10^3/uL Absolute Nucleated RBC 0.00 x10^3/uL Nucleated RBC % 0.0 /100WBC Sodium 112 L* (135-145) mmol/L Potassium 3.3 L (3.5-5.0) mmol/L Chloride 82 L (101-111) mmol/L Carbon Dioxide 17 L (21-32) mmol/L Anion Gap 13.0 (6-13) BUN 11 (6-20) mg/dL Creatinine 1.0 (0.6-1.2) mg/dL Estimated GFR (MDRD) 78 L (>89) Glucose 127 H (70-100) mg/dL POC Whole Bld Glucose (70 - 100) mg/dL Lactic Acid (0.5-2.2) mmol/L Uric Acid (2.6-7.2) mg/dL Calcium 7.9 L (8.5-10.3) mg/dL Phosphorus (2.5-4.6) mg/dL Magnesium (1.7-2.8) mg/dL Total Bilirubin 1.2 H (0.2-1.0) mg/dL Direct Bilirubin (0.1-0.5) mg/dL AST 217 H (10-42) IU/L ALT 89 H (10-60) IU/L Alkaline Phosphatase 71 (42-121) IU/L C-Reactive Protein (0-1.0) mg/dL Total Protein 6.9 (6.7-8.2) g/dL Albumin 3.3 (3.2-5.5) g/dL Globulin 3.6 (2.1-4.2) g/dL Albumin/Globulin Ratio 0.9 L (1.0-2.2) Urine Color Urine Clarity (CLEAR) Urine pH (5.0-7.5) PH Ur Specific [place] (1.002-1.030) Urine Protein (NEGATIVE) mg/dL Urine Glucose (UA) (NEGATIVE) mg/dL Urine Ketones (NEGATIVE) mg/dL Urine Occult Blood (NEGATIVE) Urine Nitrite (NEGATIVE) Urine Bilirubin (NEGATIVE) Urine Urobilinogen (NORMAL) E.U./dL Ur Leukocyte Esterase (NEGATIVE) Urine RBC (0-5) /HPF Urine WBC (0-3) /HPF Ur Squamous Epith Cells (<= Few) Urine Bacteria (None Seen) /HPF Urine Casts /LPF Urine Culture Comments Urine Sodium mmol/L Nasal Adenovirus (PCR) Nasal B. parapertussis DNA (PCR) Nasal Coronavir 229E PCR Nasal Coronavir HKU1 PCR Nasal Coronavir NL63 PCR Nasal Coronavir OC43 PCR Nasal Enterovir/Rhinovir PCR Nasal Influenza B PCR Nasal Influenza A PCR Nasal Parainfluen 1 PCR Nasal Parainfluen 2 PCR Nasal Parainfluen 3 PCR Nasal Parainfluen 4 PCR Nasal RSV (PCR) Nasal Screen MRSA (PCR) (NEGATIVE) Nasal B.pertussis DNA PCR Nasal C.pneumoniae (PCR) Adam Human Metapneumo PCR Nasal M.pneumoniae (PCR) Nasal SARS-CoV-2 (PCR) - Diagnostic Imaging Diagnostic Imaging Results: positive: Prelim report reviewed ABX Reporting Has patient been on IV antibiotics over the past 48 hours?: Yes Sepsis Event Note (H) - Evaluation Current Stage of Sepsis: Sepsis Possible source of Sepsis: positive: Pulmonary - Sepsis Criteria Sepsis Criteria: Recorded Temperature greater than 38.3C or Less than 36C, Recorded Heart Rate greater than 90 bpm, WBC count greater than 12,000 or less than 4000 Assessment/Plan - Problem List (1) Sepsis Impression: Sepsis secondary to community-acquired pneumonia presenting with fever tachycardia and leukocytosis. He is hemodynamically stable and surprisingly somewhat asymptomatic from the pneumonia point of view. Seems to be improved compared with overnight in terms of overall not appearing toxic or ill. We will continue ceftriaxone and azithromycin while hospitalized as we are still correcting his sodium level and despite his lack of oxygen requirement given his initial presentation I think it is reasonable to keep him here another 24 hours. Qualifiers: Sepsis acute organ dysfunction status: without acute organ dysfunction (2) Abnormal LFTs Impression: Likely secondary to sepsis although there is some consideration for legionnaires given his presentation with abdominal symptoms including diarrhea. Trend labs. Follow-up Urine Legionella antigen (3) Acute hyponatremia Impression: Significant hyponatremia with initial presenting sodium level of 112, which has already corrected to 125. Underlying etiology is likely secondary to hypovolemia in the setting of infection rather than the true etiology being in the infection itself given how quickly corrected with volume replacement. We will continue to follow-up labs and will check a repeat BMP in 6 hours. (4) Community acquired pneumonia Impression: Saturating well on room air. Continue IV ceftriaxone and Rocephin. As above follow-up Legionella urine antigen Qualifiers: Laterality: right Lung location: lower lobe of lung Qualified Code(s): J18.9 - Pneumonia, unspecified organism
[2020-10-12] MEDS: SIMETHICONE CHEW 80 MG TABLET PO PRN (13:32)
[2020-10-12 14:21] LABS: CALCIUM 8.6 mg/dL (8.5-10.3); CREATININE 0.9 mg/dL (0.6-1.2); POTASSIUM 3.8 mmol/L (3.5-5.0)
[2020-10-12] MEDS: ALBUTEROL NEB 2.5 MG/3 ML INH PRN ×2 (14:39→19:08)
[2020-10-12] MEDS ORDERED: IPRATROPIUM/ALBUTEROL 3 ML NEB INH PRN ×2 (15:38→18:56)
[2020-10-12] MEDS: BACLOFEN 10 MG TABLET PO PRN ×2 (15:55→20:33)
[2020-10-12] MEDS ORDERED: FUROSEMIDE 20 MG/2 ML VIAL IVP ONE (16:00)
[2020-10-12 16:28] LABS: CALCIUM 8.6 mg/dL (8.5-10.3); CREATININE 0.9 mg/dL (0.6-1.2); POTASSIUM 3.2 mmol/L (3.5-5.0)
--- NOTE | 2020-10-12 18:18 | CONSULTATION NOTE ---
Consultation Report: Call for assist with IV placement, plan of care includes IV antibiotic and diuretics after transfer out of ICU. Pt with history of difficult IV starts as well as multiple failed attempts t/o both upper extremities. Attempt L AC/FA x 2 with US. Unable to thread catheter after flash. Attempt x2 R AC, Brachial. 20ga 1.88" placed at R Brachial with US. Easily aspirates and flushes blood after cap placement. Secured with tape, tegaderm. Pt tolerated procedure without complaint, complication.
[2020-10-12] MEDS ORDERED: LIDO GARGLE 30 ML BOTTLE ONE (18:32)
[2020-10-12] MEDS ORDERED: chlorproMAZINE 25 MG TABLET PO PRN (19:44)
[2020-10-12] MEDS ORDERED: DEXTROSE 5%-0.45% NACL 1,000 ML IV SCH (20:00)
[2020-10-12] MEDS: AZITHROMYCIN INJ 500 MG in SODIUM CHLORIDE 0.9% 250 ML IV SCH (20:28)
[2020-10-12] MEDS: cefTRIAXone 2 GM in SODIUM CHLORIDE 0.9% MINIBAG 100 ML IV SCH (22:24)
[2020-10-12 22:57] LABS: CALCIUM 8.1 mg/dL (8.5-10.3); CREATININE 0.9 mg/dL (0.6-1.2); POTASSIUM 3.6 mmol/L (3.5-5.0)
[2020-10-13] MEDS: SODIUM CHLORIDE 0.9% 1,000 ML IV SCH ×2 (00:59→11:53)
[2020-10-13] MEDS: SODIUM CHLORIDE FLUSH 0.9% 10 ML SYRINGE IVP SCH ×3 (01:01→17:13)
[2020-10-13] MEDS: IPRATROPIUM/ALBUTEROL 3 ML NEB INH PRN ×3 (01:20→18:58)
[2020-10-13 04:44] LABS: BASOPHILS # (AUTO) 0.1 10^3/uL (0.0-0.1); BASOPHILS % (AUTO) 0.4 %; EOSINOPHILS % (AUTO) 0.2 %; HCT - HEMATOCRIT 36.8 % (42.0-52.0); HGB - HEMOGLOBIN 13.1 g/dL (14.0-18.0); LYMPHOCYTES # (AUTO) 0.9 10^3/uL (1.5-3.5); LYMPHOCYTES % (AUTO) 6.2 %; MEAN CORPUSCULAR HEMOGLOBIN 31.6 pg (27.0-31.0); MEAN CORPUSCULAR HGB CONC 35.6 g/dL (32.0-36.0); MEAN CORPUSCULAR VOLUME 88.7 fL (80.0-94.0); MEAN PLATELET VOLUME 10.4 fL (7.4-11.4); MONOCYTES # (AUTO) 1.4 10^3/uL (0.0-1.0); NEUTROPHILS # (AUTO) 11.3 10^3/uL (1.5-6.6); PLT - PLATELET COUNT 196 10^3/uL (130-450); RED BLOOD COUNT 4.15 10^6/uL (4.70-6.10); RED CELL DISTRIBUTION WIDTH 11.9 % (12.0-15.0); WHITE BLOOD COUNT 14.2 x10^3/uL (4.8-10.8)
[2020-10-13 04:54] LABS: ALBUMIN 3.1 g/dL (3.2-5.5); BILIRUBIN,DIRECT 0.2 mg/dL (0.1-0.5); BILIRUBIN,TOTAL 0.4 mg/dL (0.2-1.0); CALCIUM 7.8 mg/dL (8.5-10.3); CREATININE 0.9 mg/dL (0.6-1.2); MAGNESIUM 2.5 mg/dL (1.7-2.8); POTASSIUM 3.5 mmol/L (3.5-5.0); TOTAL PROTEIN 6.7 g/dL (6.7-8.2)
[2020-10-13] MEDS: ALBUTEROL NEB 2.5 MG/3 ML INH PRN ×2 (07:03→16:11)
[2020-10-13] MEDS: BACLOFEN 10 MG TABLET PO PRN ×3 (07:37→18:24)
[2020-10-13] MEDS: ENOXAPARIN 40 MG/0.4 ML SYRINGE SUBQ SCH (07:38)
[2020-10-13] MEDS: NEUTRA-PHOS 250 MG TABLET PO SCH ×3 (11:48→17:12)
[2020-10-13] MEDS: SIMETHICONE CHEW 80 MG TABLET PO PRN (11:48)
--- NOTE | 2020-10-13 14:29 | PROVIDER PROGRESS NOTE ---
Subjective - Prog Note Date Prog Note Date: 10/13/20 Prog Note Time: 14:27 - Subjective Pt reports feeling: Improved Current Medications - Current Medications Current Medications: Current Medications Generic Name Dose Route Start Last Admin Trade Name Freq PRN Reason Stop Dose Admin Albuterol 2.5 mg 10/12/20 19:16 10/13/20 07:03 Albuterol Neb 2.5 Mg/3 Ml INH 2.5 mg Q2HR PRN Administration Wheezing Albuterol/Ipratropium 3 ml 10/12/20 19:16 10/13/20 04:32 Ipratropium/Albuterol 3 Ml Neb INH 3 ml Q4HR PRN Administration Wheezing Baclofen 10 mg 10/12/20 15:39 10/13/20 12:11 Baclofen 10 Mg Tablet PO 10 mg TID PRN Administration Hiccups Enoxaparin Sodium 40 mg 10/12/20 09:00 10/13/20 07:38 Enoxaparin 40 Mg/0.4 Ml Syringe SUBQ 40 mg DAILY SILVANA Administration Azithromycin 500 mg/ Sodium 250 mls @ 250 mls/hr 10/12/20 21:00 10/12/20 21:28 Chloride IV 10/13/20 21:59 Infused Q24H SILVANA Infusion Ceftriaxone Sodium 2 gm/ 100 mls @ 200 mls/hr 10/12/20 22:00 10/12/20 22:54 Sodium Chloride IV 10/15/20 22:29 Infused Q24H SILVANA Infusion Sodium Chloride 1,000 mls @ 83.333 mls/hr 10/12/20 23:45 10/13/20 11:53 Normal Saline 0.9% IV 83.333 mls/hr .Q12H SILVANA Administration Simethicone 80 mg 10/12/20 13:24 10/13/20 11:48 Simethicone Chew 80 Mg Tablet PO 80 mg Q6HR PRN Administration Gas Sodium Chloride 10 ml 10/12/20 01:00 10/13/20 08:44 Sodium Chloride Flush 0.9% 10 Ml Syringe IVP Not Given 0100,0900,1700 SILVANA Sodium Phosphate 250 mg 10/13/20 08:00 10/13/20 11:48 Neutra-Phos 250 Mg Tablet PO 10/14/20 07:59 250 mg TIDWM SILVANA Administration Objective - Vital Signs/Intake & Output Reviewed Vital Signs: Yes Vital Signs: Vital Signs x48h Temp Pulse Pulse Resp BP Pulse Ox 10/13/20 13:00 37.0 C 91 21 158/84 H 99 10/13/20 09:00 37.2 C 99 22 112/81 H 98 10/13/20 07:18 88 18 Intake & Output: Intake & Output 10/10/20 10/11/20 10/12/20 10/13/20 23:59 23:59 23:59 23:59 Intake Total 1200 9070.488 3325.275 Output Total 5050 1500 Balance 1200 4020.488 1825.275 - Objective General Appearance: positive: Mild distress (During the 10 to 15 minutes or so I spent evaluating the patient and speaking to him and his , he vacillated between being comfortable, tachypneic, then back to being normal and relaxed again.Continues to intermittently have hiccups) Eyes Bilateral: positive: Normal inspection ENT: positive: ENT inspection nml Neck: positive: Nml inspection Respiratory: positive: Chest non-tender, No respiratory distress, Breath sounds nml Cardiovascular: positive: Regular rate & rhythm, No murmur, No gallop Abdomen: positive: Non-tender, No organomegaly, Nml bowel sounds Skin: positive: Color nml Extremities: positive: Nml appearance Neurologic/Psychiatric: positive: Oriented x3, CN's nml (2-12) - Lab Results Fish Bones: 10/13/20 04:30 10/13/20 04:30 Other Labs: Lab Results x24hrs 10/13/20 10/13/20 10/12/20 Range/Units 04:30 04:30 22:42 WBC 14.2 H (4.8-10.8) x10^3/uL RBC 4.15 L (4.70-6.10) 10^6/uL Hgb 13.1 L (14.0-18.0) g/dL Hct 36.8 L (42.0-52.0) % MCV 88.7 (80.0-94.0) fL MCH 31.6 H (27.0-31.0) pg MCHC 35.6 (32.0-36.0) g/dL RDW 11.9 L (12.0-15.0) % Plt Count 196 (130-450) 10^3/uL MPV 10.4 (7.4-11.4) fL Neut # (Auto) 11.3 H (1.5-6.6) 10^3/uL Lymph # (Auto) 0.9 L (1.5-3.5) 10^3/uL [place] # (Auto) 1.4 H (0.0-1.0) 10^3/uL Eos # (Auto) 0.0 (0.0-0.7) 10^3/uL Baso # (Auto) 0.1 (0.0-0.1) 10^3/uL Absolute Nucleated RBC 0.00 x10^3/uL Nucleated RBC % 0.0 /100WBC Sodium 126 L 122 L (135-145) mmol/L Potassium 3.5 3.6 (3.5-5.0) mmol/L Chloride 93 L 91 L (101-111) mmol/L Carbon Dioxide 24 18 L (21-32) mmol/L Anion Gap 9.0 13.0 (6-13) BUN 16 18 (6-20) mg/dL Creatinine 0.9 0.9 (0.6-1.2) mg/dL Estimated GFR (MDRD) 88 L 88 L (>89) Glucose 133 H 146 H (70-100) mg/dL Calcium 7.8 L 8.1 L (8.5-10.3) mg/dL Phosphorus 2.0 L (2.5-4.6) mg/dL Magnesium 2.5 (1.7-2.8) mg/dL Total Bilirubin 0.4 (0.2-1.0) mg/dL Direct Bilirubin 0.2 (0.1-0.5) mg/dL AST 159 H (10-42) IU/L ALT 117 H (10-60) IU/L Alkaline Phosphatase 73 (42-121) IU/L Total Protein 6.7 (6.7-8.2) g/dL Albumin 3.1 L (3.2-5.5) g/dL Globulin 3.6 (2.1-4.2) g/dL 10/12/20 Range/Units 16:15 WBC (4.8-10.8) x10^3/uL RBC (4.70-6.10) 10^6/uL Hgb (14.0-18.0) g/dL Hct (42.0-52.0) % MCV (80.0-94.0) fL MCH (27.0-31.0) pg MCHC (32.0-36.0) g/dL RDW (12.0-15.0) % Plt Count (130-450) 10^3/uL MPV (7.4-11.4) fL Neut # (Auto) (1.5-6.6) 10^3/uL Lymph # (Auto) (1.5-3.5) 10^3/uL [place] # (Auto) (0.0-1.0) 10^3/uL Eos # (Auto) (0.0-0.7) 10^3/uL Baso # (Auto) (0.0-0.1) 10^3/uL Absolute Nucleated RBC x10^3/uL Nucleated RBC % /100WBC Sodium 124 L (135-145) mmol/L Potassium 3.2 L (3.5-5.0) mmol/L Chloride 92 L (101-111) mmol/L Carbon Dioxide 20 L (21-32) mmol/L Anion Gap 12.0 (6-13) BUN 16 (6-20) mg/dL Creatinine 0.9 (0.6-1.2) mg/dL Estimated GFR (MDRD) 88 L (>89) Glucose 146 H (70-100) mg/dL Calcium 8.6 (8.5-10.3) mg/dL Phosphorus (2.5-4.6) mg/dL Magnesium (1.7-2.8) mg/dL Total Bilirubin (0.2-1.0) mg/dL Direct Bilirubin (0.1-0.5) mg/dL AST (10-42) IU/L ALT (10-60) IU/L Alkaline Phosphatase (42-121) IU/L Total Protein (6.7-8.2) g/dL Albumin (3.2-5.5) g/dL Globulin (2.1-4.2) g/dL ABX Reporting Has patient been on IV antibiotics over the past 48 hours?: Yes Sepsis Event Note (H) - Evaluation Current Stage of Sepsis: Sepsis Possible source of Sepsis: positive: Pulmonary - Sepsis Criteria Sepsis Criteria: Recorded Temperature greater than 38.3C or Less than 36C, Recorded Heart Rate greater than 90 bpm, WBC count greater than 12,000 or less than 4000 Assessment/Plan - Problem List (1) Community acquired pneumonia Impression: Patient diagnosed with community-acquired pneumonia with sepsis on admission, with sepsis and since resolved. No oxygen requirement but has intermittent levels of tachypnea and intermittent wheezing. This is further complicated by intractable hiccups. Afebrile for 24 hours but leukocytosis worsened with WBC up from 11 to 14 today Given variability in respiratory status and severity of sepsis on admission, I favor conservative approach with continuing IV antibiotics for at least another 24 hours. Consider repeat x-ray tomorrow, follow labs and clinical course and narrow antibiotics when clinically appropriate. Qualifiers: Laterality: right Lung location: lower lobe of lung Qualified Code(s): J18.9 - Pneumonia, unspecified organism (2) Sepsis Impression: Sepsis resolved though continues to require IV antibiotics. Qualifiers: Sepsis acute organ dysfunction status: without acute organ dysfunction (3) Abnormal LFTs Impression: Likely secondary to sepsis. Improving, trending down. (4) Acute hyponatremia Impression: Likely secondary to hypovolemia and dehydration in the setting of sepsis. Improved, currently 126. Tolerating p.o.. DC NS.Continue to monitor.
[2020-10-13] MEDS: SODIUM CHLORIDE FLUSH 0.9% 10 ML SYRINGE IVP PRN (14:51)
[2020-10-13] MEDS ORDERED: FUROSEMIDE 20 MG/2 ML VIAL IVP STA (19:33)
[2020-10-13 19:43] LABS: CALCIUM 8.2 mg/dL (8.5-10.3); POTASSIUM 3.4 mmol/L (3.5-5.0)
[2020-10-13] MEDS ORDERED: POTASSIUM CHLORIDE 20 MEQ TABLET PO ONE (19:56)
--- NOTE | 2020-10-13 20:03 | XRAY Report ---
PROCEDURE: Chest 1 View X-Ray INDICATIONS: Short of breath TECHNIQUE: One view of the chest was acquired. COMPARISON: None. FINDINGS: Surgical changes and devices: None. Lungs and pleura: No pleural effusions or pneumothorax. Grossly unchanged ill-defined opacities in t he right lung base are noted. Mediastinum: Mediastinal contours appear normal. Heart size is normal. Bones and chest wall: No suspicious bony lesions. Overlying soft tissues appear unremarkable. IMPRESSION: Right basilar pneumonia. No definite interval change. Reviewed by: Kleber Ojeda MD on 10/13/2020 8:02 PM PDT Approved by: Kleber Ojeda MD on 10/13/2020 8:02 PM PDT Station ID: [id number]
[2020-10-13] MEDS: AZITHROMYCIN INJ 500 MG in SODIUM CHLORIDE 0.9% 250 ML IV SCH (20:26)
[2020-10-13] MEDS ORDERED: MORPHINE 2 MG/ML CARPUJECT IVP PRN (20:38)
[2020-10-13 20:51] LABS: ABG PH 7.53 (7.35-7.45)
[2020-10-13 20:52] LABS: ABG BASE EXCESS 0.3 mmol/L (-2.0-3.0); ABG HCO3 21.7 mmol/L (22.0-26.0); ABG OXYGEN SATURATION 98 % (94-98); ABG PCO2 27 mmHg (34-45); ABG PO2 91 mmHg (80-100); ABG TCO2 22.6 MMOL/L (21.0-29.0); ALLEN TEST POSITIVE
[2020-10-13] MEDS: MORPHINE 2 MG/ML CARPUJECT IVP PRN (20:59)
[2020-10-13] MEDS: cefTRIAXone 2 GM in SODIUM CHLORIDE 0.9% MINIBAG 100 ML IV SCH (22:28)
[2020-10-14] MEDS: SODIUM CHLORIDE FLUSH 0.9% 10 ML SYRINGE IVP SCH ×3 (00:23→17:09)
[2020-10-14] MEDS: MORPHINE 2 MG/ML CARPUJECT IVP PRN (02:42)
[2020-10-14 04:54] LABS: BASOPHILS % (AUTO) 0.3 %; EOSINOPHILS % (AUTO) 2.2 %; HCT - HEMATOCRIT 36.8 % (42.0-52.0); HGB - HEMOGLOBIN 12.6 g/dL (14.0-18.0); LYMPHOCYTES % (AUTO) 14.8 %; MEAN CORPUSCULAR HEMOGLOBIN 31.4 pg (27.0-31.0); MEAN CORPUSCULAR HGB CONC 34.2 g/dL (32.0-36.0); MEAN CORPUSCULAR VOLUME 91.8 fL (80.0-94.0); MEAN PLATELET VOLUME 10.7 fL (7.4-11.4); MONOCYTES % (AUTO) 12.3 %; NEUTROPHILS % (AUTO) 65.2 %; PLT - PLATELET COUNT 182 10^3/uL (130-450); RED BLOOD COUNT 4.01 10^6/uL (4.70-6.10); RED CELL DISTRIBUTION WIDTH 12.5 % (12.0-15.0); WHITE BLOOD COUNT 9.2 x10^3/uL (4.8-10.8)
[2020-10-14 05:10] LABS: ABNORMAL LYMPHS % (MANUAL) 0 %
[2020-10-14 05:29] LABS: BILIRUBIN,DIRECT 0.1 mg/dL (0.1-0.5); BILIRUBIN,TOTAL 0.7 mg/dL (0.2-1.0); CALCIUM 7.8 mg/dL (8.5-10.3); CREATININE 0.8 mg/dL (0.6-1.2); MAGNESIUM 2.6 mg/dL (1.7-2.8); PHOSPHORUS 2.9 mg/dL (2.5-4.6); POTASSIUM 3.5 mmol/L (3.5-5.0); TOTAL PROTEIN 6.2 g/dL (6.7-8.2)
[2020-10-14 05:36] LABS: BAND NEUTROPHILS % (MANUAL) 3 %; DIFFERENTIAL COMMENT MANUAL DIFFERENTIAL; EOSINOPHILS # (MANUAL) 0.1 10^3/uL (0-0.7); LYMPHOCYTES # (MANUAL) 1.8 10^3/uL (1.5-3.5); LYMPHOCYTES % (MANUAL) 20 %; MONOCYTES # (MANUAL) 0.6 10^3/uL (0.0-1.0); MYELOCYTES % (MANUAL) 1 %; NEUTROPHILS # (MANUAL) 6.5 10^3/uL (1.5-6.6); PLATELET ESTIMATE, MANUAL NORMAL (130-450,000) (NORMAL); PLATELET MORPHOLOGY NORMAL APPEARANCE (NORMAL); RBC MORPHOLOGY (MULTIPLE) NORMAL APPEARANCE (NORMAL); WBC MORPHOLOGY (MULTIPLE) NORMAL APPEARANCE (NORMAL)
[2020-10-14] MEDS: ENOXAPARIN 40 MG/0.4 ML SYRINGE SUBQ SCH (09:03)
[2020-10-14] MEDS: FUROSEMIDE 20 MG/2 ML VIAL IVP SCH (09:05)
[2020-10-14] MEDS: LACTOBACILLUS RHAMNOSUS GG CAPSULE PO SCH (09:09)
[2020-10-14] MEDS: IPRATROPIUM/ALBUTEROL 3 ML NEB INH PRN (09:35)
[2020-10-14] MEDS ORDERED: POTASSIUM CHLORIDE 20 MEQ TABLET PO ONE (13:25)
[2020-10-14] MEDS: guaiFENesin 600 MG TABLET PO SCH ×2 (13:51→21:58)
[2020-10-14] MEDS ORDERED: IOVERSOL 320 100 ML VIAL IVP ONE ×2 (14:25→15:22)
--- NOTE | 2020-10-14 15:44 | CT Report ---
PROCEDURE: ANGIO CHEST W/WO INDICATIONS: Respiratory failure with hypoxia, f/u PNA, r/o PE CONTRAST: IV CONTRAST: Optiray 320 ml: 80 PO CONTRAST: *NO PO CONTRAST TECHNIQUE: After the administration of intravenous contrast, 2 mm thick sections acquired from the pulmonary api fanta to the posterior costophrenic angles. 3-dimensional maximum intensity projection (MIP) coronal a nd sagittal reformats were then acquired through the thorax. For radiation dose reduction, the follow ing was used: automated exposure control, adjustment of mA and/or kV according to patient size. COMPARISON: Chest radiograph dated 10/13/2020 and 10/11/2020 FINDINGS: Image quality: Excellent. Pulmonary arteries: Pulmonary arteries are normal in size. No intraluminal filling defect is seen in the main pulmonary trunk and bilateral main pulmonary arteries. More distal segmental and subsegmenta l branches of bilateral pulmonary arteries are suboptimally opacified. Filling defects within subsegm ental branches of bilateral pulmonary arteries cannot be excluded. Lungs and pleura: Hazy groundglass opacity is seen throughout bilateral lung stubbs suggestive of pul monary edema. Large airspace opacity is noted within posterior medial aspect of right lower lobe exte nding to right hilar region suggestive of large right lower lobe infiltrate. Scattered atelectasis in bilateral lung stubbs are seen. No pleural effusions or pneumothorax. Central and peripheral airway s are patent. Mediastinum: Heart size is mildly enlarged, without pericardial effusion. Prominent mediastinal lymp h nodes and right hilar lymph nodes are seen measures up to 1.2 cm in short axis diameter in subcarin al space and up to 1.1 cm in short axis diameter in right hilar region. Thoracic aorta is normal in c aliber and enhancement. Esophagus is normal in caliber, without hiatal hernia. Bones and chest wall: No suspicious bony lesions. No vertebral body compression fracture. No axillar y or supraclavicular adenopathy. The thyroid is normal in size and there are no incidental findings. Abdomen: Visualized portion of liver, gallbladder and bilateral adrenal glands shows no gross abnorma lity. There is splenomegaly. IMPRESSION: 1. No evidence of central pulmonary emboli. More distal segmental and subsegmental branches of bilate ral pulmonary arteries are suboptimally opacified, small distal pulmonary emboli cannot be excluded. 2. Large airspace consolidation in right lower lobe suggestive of right lower lobe infiltrate. Hazy o pacities throughout bilateral lung stubbs suggestive of pulmonary edema/pneumonitis. No pleural effus ion or pneumothorax. Airway is patent. 3. Enlarged mediastinal and right hilar lymph nodes suggestive of reactive inflammatory lymph nodes. Borderline cardiomegaly, no pericardial effusion. 4. Splenomegaly. CLINICAL RECOMMENDATION STATEMENTS: In patients <35 years with an ITN detected on CT, MRI, or extrathyroidal ultrasound, the Committee re commends further evaluation with dedicated thyroid ultrasound if the nodule is ?1 cm and has no suspi cious imaging features, and if the patient has normal life expectancy. In patients ?35 years with an ITN detected on CT, MRI, or extrathyroidal ultrasound, the Committee re commends further evaluation with dedicated thyroid ultrasound if the nodule is ?1.5 cm and has no nathaniel picious imaging features, and if the patient has normal life expectancy. (ACR, 2014) Reviewed by: Bernardo Banuelos MD on 10/14/2020 3:43 PM PDT Approved by: Bernardo Banuelos MD on 10/14/2020 3:43 PM PDT Station ID: [id number]
[2020-10-14] MEDS ORDERED: diazePAM INJ 5 MG/ML SYRINGE IVP PRN (16:37)
--- NOTE | 2020-10-14 16:40 | PROVIDER PROGRESS NOTE ---
Subjective - Prog Note Date Prog Note Date: 10/14/20 Prog Note Time: 16:38 - Subjective Pt reports feeling: Improved Subjective: Subjectively the patient reports that he feels improved however this is due to the BiPAP. He states that when the BiPAP was off this morning he did not feel like he was breathing much better and was struggling to eat his breakfast. Current Medications - Current Medications Current Medications: Current Medications Generic Name Dose Route Start Last Admin Trade Name Freq PRN Reason Stop Dose Admin Albuterol 2.5 mg 10/12/20 19:16 10/13/20 16:11 Albuterol Neb 2.5 Mg/3 Ml INH 2.5 mg Q2HR PRN Administration Wheezing Albuterol/Ipratropium 3 ml 10/12/20 19:16 10/14/20 09:35 Ipratropium/Albuterol 3 Ml Neb INH 3 ml Q4HR PRN Administration Wheezing Baclofen 10 mg 10/12/20 15:39 10/13/20 18:24 Baclofen 10 Mg Tablet PO 10 mg TID PRN Administration Hiccups Enoxaparin Sodium 40 mg 10/12/20 09:00 10/14/20 09:03 Enoxaparin 40 Mg/0.4 Ml Syringe SUBQ 40 mg DAILY SILVANA Administration Furosemide 20 mg 10/14/20 09:00 10/14/20 09:05 Furosemide 20 Mg/2 Ml Vial IVP 20 mg DAILY SILVANA Administration Guaifenesin 1,200 mg 10/14/20 13:00 10/14/20 13:51 Guaifenesin 600 Mg Tablet PO 1,200 mg BID SILVANA Administration Ceftriaxone Sodium 2 gm/ 100 mls @ 200 mls/hr 10/12/20 22:00 10/14/20 00:08 Sodium Chloride IV 10/15/20 22:29 Infused Q24H SILVANA Infusion Ibuprofen 400 mg 10/11/20 23:41 10/13/20 20:22 Ibuprofen 400 Mg Tablet PO 400 mg Q6HR PRN Administration Pain or Fever > 38C (100.4F) Lactobacillus Rhamnosus 1 cap 10/14/20 09:00 10/14/20 09:09 Lactobacillus Rhamnosus Gg Capsule PO 1 cap DAILY SILVANA Administration Morphine Sulfate 1 mg 10/13/20 20:45 10/14/20 02:42 Morphine 2 Mg/Ml Carpuject IVP 1 mg Q4HR PRN Administration Dyspnea Simethicone 80 mg 10/12/20 13:24 10/13/20 11:48 Simethicone Chew 80 Mg Tablet PO 80 mg Q6HR PRN Administration Gas Sodium Chloride 10 ml 10/12/20 01:00 10/14/20 09:05 Sodium Chloride Flush 0.9% 10 Ml Syringe IVP 10 ml 0100,0900,1700 SILAVNA Administration Sodium Chloride 10 ml 10/11/20 23:03 10/13/20 14:51 Sodium Chloride Flush 0.9% 10 Ml Syringe IVP 10 ml PRN PRN Administration NEEDED PER PROVIDER ORDERS Objective - Vital Signs/Intake & Output Reviewed Vital Signs: Yes Vital Signs: Vital Signs x48h Temp Pulse Pulse Resp BP Pulse Ox 10/14/20 16:00 76 24 131/90 H 100 10/14/20 15:00 85 13 129/87 H 97 10/14/20 14:00 88 21 135/92 H 100 10/14/20 13:11 87 10/14/20 13:00 89 29 H 130/74 100 10/14/20 12:00 37.1 C 92 22 124/74 94 10/14/20 11:00 88 31 H 149/87 H 92 10/14/20 10:00 89 25 H 143/81 H 97 10/14/20 09:37 85 12 10/14/20 09:00 80 24 105/87 H 96 Intake & Output: Intake & Output 10/11/20 10/12/20 10/13/20 10/14/20 23:59 23:59 23:59 23:59 Intake Total 1200 9070.488 4453.885 1290 Output Total 5050 2300 5475 Balance 1200 4020.488 2153.885 -4180 - Objective General Appearance: positive: No acute distress Eyes Bilateral: positive: Normal inspection ENT: positive: ENT inspection nml Neck: positive: Nml inspection, Thyroid nml, No JVD Respiratory: positive: Chest non-tender, Wheezes (Intermittent wheeze. Patient has been examined several times today and initially no wheeze, but has had brief periods of wheezing.), Other (No cough). negative: No respiratory distress (There is mild respiratory distress with mild tachypnea but patient is overall tolerating BiPAP well.), Rales, Rhonchi Cardiovascular: positive: Regular rate & rhythm, No murmur, No gallop Abdomen: positive: Non-tender, No organomegaly, Nml bowel sounds, No distention Back: positive: Nml inspection Skin: positive: Color nml, No rash, Warm, Dry Extremities: positive: Non-tender, Full ROM, Nml appearance Neurologic/Psychiatric: positive: Oriented x3, CN's nml (2-12), Motor nml - Lab Results Fish Bones: 10/14/20 04:40 10/14/20 04:40 Other Labs: Lab Results x24hrs 10/14/20 10/14/20 10/13/20 Range/Units 04:40 04:40 20:43 WBC 9.2 (4.8-10.8) x10^3/uL RBC 4.01 L (4.70-6.10) 10^6/uL Hgb 12.6 L (14.0-18.0) g/dL Hct 36.8 L (42.0-52.0) % MCV 91.8 (80.0-94.0) fL MCH 31.4 H (27.0-31.0) pg MCHC 34.2 (32.0-36.0) g/dL RDW 12.5 (12.0-15.0) % Plt Count 182 (130-450) 10^3/uL MPV 10.7 (7.4-11.4) fL Neut # (Auto) Not Reportable Lymph # (Auto) Not Reportable Stanley # (Auto) Not Reportable Eos # (Auto) Not Reportable Baso # (Auto) Not Reportable Absolute Nucleated RBC Not Reportable Total Counted 100 Band Neuts % (Manual) 3 (0 - 10) % Abnorm Lymph % (Manual) 0 % Myelocytes % 1 H ( - 0) % Nucleated RBC % Not Reportable Neutrophils # (Manual) 6.5 (1.5-6.6) 10^3/uL Lymphocytes # (Manual) 1.8 (1.5-3.5) 10^3/uL Monocytes # (Manual) 0.6 (0.0-1.0) 10^3/uL Eosinophils # (Manual) 0.1 (0-0.7) 10^3/uL Basophils # (Manual) 0.0 (0-0.1) 10^3/uL Differential Comment MANUAL DIFFERENTIAL WBC Morphology NORMAL APPEARANCE (NORMAL) Platelet Estimate NORMAL (130-450,000) (NORMAL) Platelet Morphology NORMAL APPEARANCE (NORMAL) RBC Morph Micro Appear NORMAL APPEARANCE (NORMAL) Bld Gas Analysis Time 2049 Sample Site LEFT RADIAL ABG pH 7.53 H (7.35-7.45) ABG pCO2 27 L (34-45) mmHg ABG pO2 91 (80-100) mmHg ABG HCO3 21.7 L (22.0-26.0) mmol/L ABG Total CO2 22.6 (21.0-29.0) MMOL/L ABG O2 Saturation 98 (94-98) % ABG Base Excess 0.3 (-2.0-3.0) mmol/L Shawn Test POSITIVE O2 Delivery Device BiPAP FiO2 30.00 EPAP 5 cmH2O IPAP 15 cmH2O Sodium 136 (135-145) mmol/L Potassium 3.5 (3.5-5.0) mmol/L Chloride 100 L (101-111) mmol/L Carbon Dioxide 25 (21-32) mmol/L Anion Gap 11.0 (6-13) BUN 13 (6-20) mg/dL Creatinine 0.8 (0.6-1.2) mg/dL Estimated GFR (MDRD) 101 (>89) Glucose 96 (70-100) mg/dL Calcium 7.8 L (8.5-10.3) mg/dL Phosphorus 2.9 (2.5-4.6) mg/dL Magnesium 2.6 (1.7-2.8) mg/dL Total Bilirubin 0.7 (0.2-1.0) mg/dL Direct Bilirubin 0.1 (0.1-0.5) mg/dL AST 98 H (10-42) IU/L ALT 107 H (10-60) IU/L Alkaline Phosphatase 61 (42-121) IU/L Total Protein 6.2 L (6.7-8.2) g/dL Albumin 3.0 L (3.2-5.5) g/dL Globulin 3.2 (2.1-4.2) g/dL Nasal Screen MRSA (PCR) (NEGATIVE) 10/13/20 10/13/20 Range/Units 19:30 19:26 WBC (4.8-10.8) x10^3/uL RBC (4.70-6.10) 10^6/uL Hgb (14.0-18.0) g/dL Hct (42.0-52.0) % MCV (80.0-94.0) fL MCH (27.0-31.0) pg MCHC (32.0-36.0) g/dL RDW (12.0-15.0) % Plt Count (130-450) 10^3/uL MPV (7.4-11.4) fL Neut # (Auto) Lymph # (Auto) Stanley # (Auto) Eos # (Auto) Baso # (Auto) Absolute Nucleated RBC Total Counted Band Neuts % (Manual) (0 - 10) % Abnorm Lymph % (Manual) % Myelocytes % ( - 0) % Nucleated RBC % Neutrophils # (Manual) (1.5-6.6) 10^3/uL Lymphocytes # (Manual) (1.5-3.5) 10^3/uL Monocytes # (Manual) (0.0-1.0) 10^3/uL Eosinophils # (Manual) (0-0.7) 10^3/uL Basophils # (Manual) (0-0.1) 10^3/uL Differential Comment WBC Morphology (NORMAL) Platelet Estimate (NORMAL) Platelet Morphology (NORMAL) RBC Morph Micro Appear (NORMAL) Bld Gas Analysis Time Sample Site ABG pH (7.35-7.45) ABG pCO2 (34-45) mmHg ABG pO2 (80-100) mmHg ABG HCO3 (22.0-26.0) mmol/L ABG Total CO2 (21.0-29.0) MMOL/L ABG O2 Saturation (94-98) % ABG Base Excess (-2.0-3.0) mmol/L Shawn Test O2 Delivery Device FiO2 EPAP cmH2O IPAP cmH2O Sodium 128 L (135-145) mmol/L Potassium 3.4 L (3.5-5.0) mmol/L Chloride 96 L (101-111) mmol/L Carbon Dioxide 22 (21-32) mmol/L Anion Gap 10.0 (6-13) BUN 13 (6-20) mg/dL Creatinine 1.0 (0.6-1.2) mg/dL Estimated GFR (MDRD) 78 L (>89) Glucose 130 H (70-100) mg/dL Calcium 8.2 L (8.5-10.3) mg/dL Phosphorus (2.5-4.6) mg/dL Magnesium (1.7-2.8) mg/dL Total Bilirubin (0.2-1.0) mg/dL Direct Bilirubin (0.1-0.5) mg/dL AST (10-42) IU/L ALT (10-60) IU/L Alkaline Phosphatase (42-121) IU/L Total Protein (6.7-8.2) g/dL Albumin (3.2-5.5) g/dL Globulin (2.1-4.2) g/dL Nasal Screen MRSA (PCR) NEGATIVE (NEGATIVE) - Diagnostic Imaging Diagnostic Imaging Results: positive: Final report reviewed Sepsis Event Note (H) - Evaluation Current Stage of Sepsis: Sepsis Possible source of Sepsis: positive: Pulmonary - Sepsis Criteria Sepsis Criteria: Recorded Temperature greater than 38.3C or Less than 36C, Recorded Heart Rate greater than 90 bpm, WBC count greater than 12,000 or less than 4000 Assessment/Plan - Problem List (1) Community acquired pneumonia Impression: Patient is on day 3 of hospitalization with bacterial pneumonia with intermit tent periods of improvement and worsening. Clinical course has been somewhat variable. He has been afebrile for greater than 24 hours. WBC count is trending down and decreased from 14-9000 overnight. Is periodically oxygenating well on room air but at times desaturates when eating, has hiccups, or sleeping. Chest x-ray repeated yesterday after admission shows no significant interval change. Patient has been intermittently on and off BiPAP for more than 24 hours now prompting concerns for possible respiratory fatigue. Given lack of significant clinical improvement and variability of the overall clinical picture, I ordered a CT angiogram on the off chance the patient may have had a undiagnosed PE as well as to further evaluate for further sequelae of pneumonia such as empyema. CT angiogram shows no evidence of PE but does continue to show right lung pneumonia, with now some scattered hazy opacities but generally sparing most of the left lung. There is no evidence of empyema or other secondary process. Given that the patient has had a somewhat slow response I am going to add vancomycin as at this point given that he is on BiPAP he does technically qualify for risk factors for MRSA and that he is requiring mechanical ventilation. We will continue with azithromycin and Rocephin. Patient does not able to comfortably come off BiPAP by tomorrow it may be worth considering consultation with pulmonary/critical care at outside hospital for BAL or other further work-up not a available at this facility. (Because the CT angiogram does not show any new pathology, and because his white count has improved, and because he has been able to saturate well on room air as early as this morning, think would be reasonable for a 24-hour observation before transferring him.) Qualifiers: Laterality: right Lung location: lower lobe of lung Qualified Code(s): J18.9 - Pneumonia, unspecified organism (2) Sepsis Impression: Sepsis resolved. See above for PNA Qualifiers: Sepsis acute organ dysfunction status: without acute organ dysfunction (3) Abnormal LFTs Impression: [place] down.Likely 2/2 sepsis. Will monitor. (4) Acute hyponatremia Impression: Na normal at 137
[2020-10-14] MEDS ORDERED: VANCOMYCIN INJ 2 GM, VANCOMYCIN INJ 500 MG in SODIUM CHLORIDE 0.9% 500 ML IV ONE (17:00)
[2020-10-14] MEDS: cefTRIAXone 2 GM in SODIUM CHLORIDE 0.9% MINIBAG 100 ML IV SCH (22:10)
[2020-10-14] MEDS: BACLOFEN 10 MG TABLET PO PRN (23:53)
[2020-10-15] MEDS: SODIUM CHLORIDE FLUSH 0.9% 10 ML SYRINGE IVP SCH ×3 (01:00→15:16)
[2020-10-15 04:54] LABS: BASOPHILS % (AUTO) 0.5 %; EOSINOPHILS % (AUTO) 4.5 %; HCT - HEMATOCRIT 37.2 % (42.0-52.0); HGB - HEMOGLOBIN 12.7 g/dL (14.0-18.0); MEAN CORPUSCULAR HEMOGLOBIN 31.6 pg (27.0-31.0); MEAN CORPUSCULAR HGB CONC 34.1 g/dL (32.0-36.0); MEAN CORPUSCULAR VOLUME 92.5 fL (80.0-94.0); MEAN PLATELET VOLUME 10.7 fL (7.4-11.4); MONOCYTES % (AUTO) 8.9 %; NEUTROPHILS % (AUTO) 60.6 %; PLT - PLATELET COUNT 185 10^3/uL (130-450); RED BLOOD COUNT 4.02 10^6/uL (4.70-6.10); RED CELL DISTRIBUTION WIDTH 12.6 % (12.0-15.0); WHITE BLOOD COUNT 9.1 x10^3/uL (4.8-10.8)
[2020-10-15 04:57] LABS: ABNORMAL LYMPHS % (MANUAL) 0 %; BAND NEUTROPHILS % (MANUAL) 0 %
[2020-10-15 05:05] LABS: CREATININE 0.8 mg/dL (0.6-1.2); MAGNESIUM 2.3 mg/dL (1.7-2.8); PHOSPHORUS 3.4 mg/dL (2.5-4.6); POTASSIUM 3.7 mmol/L (3.5-5.0)
[2020-10-15 05:14] LABS: EOSINOPHILS # (MANUAL) 0.4 10^3/uL (0-0.7); LYMPHOCYTES # (MANUAL) 2.1 10^3/uL (1.5-3.5); LYMPHOCYTES % (MANUAL) 23 %; MONOCYTES # (MANUAL) 0.6 10^3/uL (0.0-1.0); PLATELET ESTIMATE, MANUAL NORMAL (130-450,000) (NORMAL); PLATELET MORPHOLOGY NORMAL APPEARANCE (NORMAL); RBC MORPHOLOGY (MULTIPLE) NORMAL APPEARANCE (NORMAL); WBC MORPHOLOGY (MULTIPLE) NORMAL APPEARANCE (NORMAL)
[2020-10-15 05:15] LABS: DIFFERENTIAL COMMENT MANUAL DIFFERENTIAL
[2020-10-15] MEDS: VANCOMYCIN INJ 2 GM in SODIUM CHLORIDE 0.9% 500 ML IV SCH ×2 (05:26→16:41)
[2020-10-15] MEDS: SODIUM CHLORIDE FLUSH 0.9% 10 ML SYRINGE IVP PRN ×2 (07:50→19:15)
[2020-10-15] MEDS: ENOXAPARIN 40 MG/0.4 ML SYRINGE SUBQ SCH (09:22)
[2020-10-15] MEDS: guaiFENesin 600 MG TABLET PO SCH ×2 (09:22→22:42)
[2020-10-15] MEDS: FUROSEMIDE 20 MG/2 ML VIAL IVP SCH (09:25)
[2020-10-15] MEDS: LACTOBACILLUS RHAMNOSUS GG CAPSULE PO SCH (09:26)
[2020-10-15] MEDS ORDERED: FUROSEMIDE 40 MG/4 ML VIAL IVP STA (15:03)
--- NOTE | 2020-10-15 15:04 | PROVIDER PROGRESS NOTE ---
Assessment/Plan - Problem List (1) Sepsis Qualifiers: Sepsis acute organ dysfunction status: without acute organ dysfunction Assessment/Plan: Thought to be secondary to pneumonia. WBC is 9.1 and patient is afebrile Blood cultures are no growth to date. Patient is on vancomycin and ceftriaxone. He completed a regimen of azithromycin. Test result for Legionella is pending. (2) Pneumonia Qualifiers: Pneumonia type: due to unspecified organism Laterality: right Lung location: lower lobe of lung Qualified Code(s): J18.9 - Pneumonia, unspecified organism Assessment/Plan: WBC is 9.1 and patient is afebrile Blood cultures are no growth to date. Patient is on vancomycin and ceftriaxone. He completed a regimen of azithromycin. Test result for Legionella is pending. He was also positive for rhinovirus but negative for Covid 19. CT scan of the chest done yesterday showed large airspace consolidation in the right lower lobe suggestive of right lower lobe infiltrate. Hazy opacities throughout bilateral lung stubbs suggestive of pulmonary edema/pneumonitis. No pleural effusion or pneumothorax. Airway was patent. Off BiPAP the patient's respiratory status appears to worsen after a couple of hours. He is currently maintained on BiPAP. (3) Pulmonary edema Assessment/Plan: CT scan of the chest done yesterday showed large airspace consolidation in the right lower lobe suggestive of right lower lobe infiltrate. Hazy opacities throughout bilateral lung stubbs suggestive of pulmonary edema/pneumonitis. No pleural effusion or pneumothorax. Airway was patent. The CT angio of the chest was negative for PEs. Off BiPAP the patient's respiratory status appears to worsen after a couple of hours. He is currently maintained on BiPAP. Patient is on Lasix 20 mg IV daily. He was administered Lasix 40 mg IV x1 today afternoon. 2D echocardiogram showed the left ventricular size is normal. Mild concentric left ventricular hypertrophy. Overall left ventricular systolic function is normal with an ejection fraction of 65 to 70%. It showed severe right ventricular enlargement. The right ventricular systolic function was normal. It also showed moderate to severe right atrial enlargement. (4) Abnormal LFTs Assessment/Plan: Possibly secondary to sepsis. Trended down. Improved/resolved. (5) Respiratory failure Assessment/Plan: Likely multifactorial. Secondary to pneumonia, pulmonary edema and possibly sleep apnea. Patient is receiving IV antibiotics for pneumonia. Lasix is being administered for pulmonary edema. Patient is maintained on BiPAP. He would need to follow-up with his primary care physician in the outpatient setting for sleep study. The patient will benefit from a CPAP at home. - Current Meds Current Meds: Current Medications Generic Name Dose Route Start Last Admin Trade Name Freq PRN Reason Stop Dose Admin Albuterol 2.5 mg 10/12/20 19:16 10/13/20 16:11 Albuterol Neb 2.5 Mg/3 Ml INH 2.5 mg Q2HR PRN Administration Wheezing Albuterol/Ipratropium 3 ml 10/12/20 19:16 10/14/20 09:35 Ipratropium/Albuterol 3 Ml Neb INH 3 ml Q4HR PRN Administration Wheezing Baclofen 10 mg 10/12/20 15:39 10/14/20 23:53 Baclofen 10 Mg Tablet PO 10 mg TID PRN Administration Hiccups Enoxaparin Sodium 40 mg 10/12/20 09:00 10/15/20 09:22 Enoxaparin 40 Mg/0.4 Ml Syringe SUBQ 40 mg DAILY SILVANA Administration Furosemide 20 mg 10/14/20 09:00 10/15/20 09:25 Furosemide 20 Mg/2 Ml Vial IVP 20 mg DAILY SILVANA Administration Guaifenesin 1,200 mg 10/14/20 13:00 10/15/20 09:22 Guaifenesin 600 Mg Tablet PO 1,200 mg BID SILVANA Administration Ceftriaxone Sodium 2 gm/ 100 mls @ 200 mls/hr 10/12/20 22:00 10/14/20 22:40 Sodium Chloride IV 10/15/20 22:29 Infused Q24H SILVANA Infusion Vancomycin HCl 2 gm/ Sodium 500 mls @ 250 mls/hr 10/15/20 05:00 10/15/20 07:26 Chloride IV Infused Q12H SILVANA Infusion Ibuprofen 400 mg 10/11/20 23:41 10/13/20 20:22 Ibuprofen 400 Mg Tablet PO 400 mg Q6HR PRN Administration Pain or Fever > 38C (100.4F) Lactobacillus Rhamnosus 1 cap 10/14/20 09:00 10/15/20 09:26 Lactobacillus Rhamnosus Gg Capsule PO 1 cap DAILY SILVANA Administration Morphine Sulfate 1 mg 10/13/20 20:45 10/14/20 02:42 Morphine 2 Mg/Ml Carpuject IVP 1 mg Q4HR PRN Administration Dyspnea Simethicone 80 mg 10/12/20 13:24 10/13/20 11:48 Simethicone Chew 80 Mg Tablet PO 80 mg Q6HR PRN Administration Gas Sodium Chloride 10 ml 10/12/20 01:00 10/15/20 09:42 Sodium Chloride Flush 0.9% 10 Ml Syringe IVP 10 ml 0100,0900,1700 SILVANA Administration Sodium Chloride 10 ml 10/11/20 23:03 10/15/20 07:50 Sodium Chloride Flush 0.9% 10 Ml Syringe IVP 10 ml PRN PRN Administration NEEDED PER PROVIDER ORDERS - Lab Result Fish Bone Diagrams: 10/15/20 04:48 10/15/20 04:48 Subjective - Subjective Patient Reports: Other (Patient was awake, on bipap. He denied chest pain, dyspnea, abdominal pain, fever or chills. He becomes tachypneic and dyspneic after being off the BiPAP for a couple of hours.) Objective Vital Signs: Vital Signs - 24 hr 10/14/20 10/14/20 10/14/20 16:00 17:00 18:00 Temperature 37.3 C Heart Rate Heart Rate [ 76 93 107 H Monitoring electrodes] Respiratory 24 36 H 35 H Rate Blood Pressure 131/90 H 168/90 H 130/79 [Left Brachial artery] Blood Pressure [Right Brachial artery] O2 Saturation 100 98 97 10/14/20 10/14/20 10/14/20 18:14 18:28 19:00 Temperature Heart Rate Heart Rate [ 116 H 93 78 Monitoring electrodes] Respiratory 23 34 H 22 Rate Blood Pressure 131/94 H [Left Brachial artery] Blood Pressure [Right Brachial artery] O2 Saturation 98 99 10/14/20 10/14/20 10/14/20 20:00 21:00 21:30 Temperature 37.2 C Heart Rate 68 Heart Rate [ 94 74 Monitoring electrodes] Respiratory 21 11 L Rate Blood Pressure 129/81 H 141/85 H [Left Brachial artery] Blood Pressure [Right Brachial artery] O2 Saturation 96 98 10/14/20 10/14/20 10/15/20 22:00 23:00 00:00 Temperature 37.0 C Heart Rate Heart Rate [ 78 70 90 Monitoring electrodes] Respiratory 19 20 25 H Rate Blood Pressure 143/90 H 140/93 H 119/100 H [Left Brachial artery] Blood Pressure [Right Brachial artery] O2 Saturation 95 96 93 10/15/20 10/15/20 10/15/20 01:00 02:00 03:00 Temperature Heart Rate Heart Rate [ 70 67 68 Monitoring electrodes] Respiratory 22 17 21 Rate Blood Pressure 140/84 H 129/72 156/77 H [Left Brachial artery] Blood Pressure [Right Brachial artery] O2 Saturation 98 98 96 10/15/20 10/15/20 10/15/20 03:30 04:00 05:00 Temperature 36.7 C Heart Rate 72 Heart Rate [ 65 72 Monitoring electrodes] Respiratory 20 18 Rate Blood Pressure 152/83 H 135/73 H [Left Brachial artery] Blood Pressure [Right Brachial artery] O2 Saturation 99 97 10/15/20 10/15/20 10/15/20 06:00 06:10 06:57 Temperature Heart Rate 62 Heart Rate [ 63 69 Monitoring electrodes] Respiratory 18 21 Rate Blood Pressure 123/74 [Left Brachial artery] Blood Pressure 129/75 [Right Brachial artery] O2 Saturation 99 97 10/15/20 10/15/20 10/15/20 08:00 08:30 09:00 Temperature 36.4 C L Heart Rate Heart Rate [ 71 92 Monitoring electrodes] Respiratory 18 19 Rate Blood Pressure 130/78 150/77 H [Left Brachial artery] Blood Pressure [Right Brachial artery] O2 Saturation 97 97 10/15/20 10/15/20 10/15/20 10:00 11:00 12:00 Temperature 37 C Heart Rate Heart Rate [ 70 83 77 Monitoring electrodes] Respiratory 21 31 H 18 Rate Blood Pressure 154/79 H 146/84 H 140/89 H [Left Brachial artery] Blood Pressure [Right Brachial artery] O2 Saturation 100 96 97 Oxygen O2 Source Room air I&O (Last 24 Hrs): Intake and Output Totals x24h 10/13/20 10/14/20 10/15/20 23:59 23:59 23:59 Intake Total 0197.885 2140 2120 Output Total 1797 9339 2406 Balance 0656.988 -6071 -1317 General: Alert, Oriented x3, Cooperative, Mild distress HEENT: PERRLA, EOMI Neck: Supple, No JVD Neuro: Alert, Non Focal, Oriented Times 3 Cardiovascular: Regular rate, No murmurs Respiratory: Chest non-tender, Breath sounds nml Abdomen: Normal bowel sounds, Soft, No tenderness, No masses Extremities: No clubbing, No cyanosis, No edema Skin: No rashes, No breakdown - Results Results: Laboratory Results WBC 9.1 x10^3/uL (4.8-10.8) 10/15/20 04:48 RBC 4.02 10^6/uL (4.70-6.10) L 10/15/20 04:48 Hgb 12.7 g/dL (14.0-18.0) L 10/15/20 04:48 Hct 37.2 % (42.0-52.0) L 10/15/20 04:48 MCV 92.5 fL (80.0-94.0) 10/15/20 04:48 MCH 31.6 pg (27.0-31.0) H 10/15/20 04:48 MCHC 34.1 g/dL (32.0-36.0) 10/15/20 04:48 RDW 12.6 % (12.0-15.0) 10/15/20 04:48 Plt Count 185 10^3/uL (130-450) 10/15/20 04:48 MPV 10.7 fL (7.4-11.4) 10/15/20 04:48 Neut # (Auto) Not Reportable 10/15/20 04:48 Lymph # (Auto) Not Reportable 10/15/20 04:48 Hill # (Auto) Not Reportable 10/15/20 04:48 Eos # (Auto) Not Reportable 10/15/20 04:48 Baso # (Auto) Not Reportable 10/15/20 04:48 Absolute Nucleated RBC Not Reportable 10/15/20 04:48 Total Counted 100 10/15/20 04:48 Band Neuts % (Manual) 0 % (0-10) 10/15/20 04:48 Abnorm Lymph % (Manual) 0 % 10/15/20 04:48 Myelocytes % 1 % (-0) H 10/14/20 04:40 Nucleated RBC % Not Reportable 10/15/20 04:48 Neutrophils # (Manual) 6.0 10^3/uL (1.5-6.6) 10/15/20 04:48 Lymphocytes # (Manual) 2.1 10^3/uL (1.5-3.5) 10/15/20 04:48 Monocytes # (Manual) 0.6 10^3/uL (0.0-1.0) 10/15/20 04:48 Eosinophils # (Manual) 0.4 10^3/uL (0-0.7) 10/15/20 04:48 Basophils # (Manual) 0.0 10^3/uL (0-0.1) 10/15/20 04:48 Differential Comment MANUAL DIFFERENTIAL 10/15/20 04:48 WBC Morphology NORMAL APPEARANCE (NORMAL) 10/15/20 04:48 Platelet Estimate NORMAL (130-450,000) (NORMAL) 10/15/20 04:48 Platelet Morphology NORMAL APPEARANCE (NORMAL) 10/15/20 04:48 RBC Morph Micro Appear NORMAL APPEARANCE (NORMAL) 10/15/20 04:48 Bld Gas Analysis Time 204910/13/20 20:43 Sample Site LEFT RADIAL 10/13/20 20:43 ABG pH 7.53 (7.35-7.45) H 10/13/20 20:43 ABG pCO2 27 mmHg (34-45) L 10/13/20 20:43 ABG pO2 91 mmHg (80-100) 10/13/20 20:43 ABG HCO3 21.7 mmol/L (22.0-26.0) L 10/13/20 20:43 ABG Total CO2 22.6 MMOL/L (21.0-29.0) 10/13/20 20:43 ABG O2 Saturation 98 % (94-98) 10/13/20 20:43 ABG Base Excess 0.3 mmol/L (-2.0-3.0) 10/13/20 20:43 Shawn Test POSITIVE 10/13/20 20:43 O2 Delivery Device BiPAP 10/13/20 20:43 FiO2 30.00 10/13/20 20:43 EPAP 5 cmH2O 10/13/20 20:43 IPAP 15 cmH2O 10/13/20 20:43 Sodium 132 mmol/L (135-145) L 10/15/20 04:48 Potassium 3.7 mmol/L (3.5-5.0) 10/15/20 04:48 Chloride 101 mmol/L (101-111) 10/15/20 04:48 Carbon Dioxide 23 mmol/L (21-32) 10/15/20 04:48 Anion Gap 8.0 (6-13) 10/15/20 04:48 BUN 12 mg/dL (6-20) 10/15/20 04:48 Creatinine 0.8 mg/dL (0.6-1.2) 10/15/20 04:48 Estimated GFR (MDRD) 101 (>89) 10/15/20 04:48 Glucose 94 mg/dL (70-100) 10/15/20 04:48 POC Whole Bld Glucose 195 mg/dL (70 - 100) H 10/12/20 12:00 Lactic Acid 1.5 mmol/L (0.5-2.2) 10/11/20 21:45 Uric Acid 5.2 mg/dL (2.6-7.2) 10/11/20 23:59 Calcium 8.0 mg/dL (8.5-10.3) L 10/15/20 04:48 Phosphorus 3.4 mg/dL (2.5-4.6) 10/15/20 04:48 Magnesium 2.3 mg/dL (1.7-2.8) 10/15/20 04:48 Total Bilirubin 0.7 mg/dL (0.2-1.0) 10/14/20 04:40 Direct Bilirubin 0.1 mg/dL (0.1-0.5) 10/14/20 04:40 AST 98 IU/L (10-42) H 10/14/20 04:40 ALT 107 IU/L (10-60) H 10/14/20 04:40 Alkaline Phosphatase 61 IU/L (42-121) 10/14/20 04:40 C-Reactive Protein 25.3 mg/dL (0-1.0) H 10/11/20 21:45 Total Protein 6.2 g/dL (6.7-8.2) L 10/14/20 04:40 Albumin 2.9 g/dL (3.2-5.5) L 10/15/20 04:48 Globulin 3.2 g/dL (2.1-4.2) 10/14/20 04:40 Albumin/Globulin Ratio 0.9 (1.0-2.2) L 10/11/20 21:45 Urine Color YELLOW 10/11/20 22:50 Urine Clarity CLEAR (CLEAR) 10/11/20 22:50 Urine pH 6.0 PH (5.0-7.5) 10/11/20 22:50 Ur Specific [place] 1.010 (1.002-1.030) 10/11/20 22:50 Urine Protein 100 mg/dL (NEGATIVE) H 10/11/20 22:50 Urine Glucose (UA) NEGATIVE mg/dL (NEGATIVE) 10/11/20 22:50 Urine Ketones 40 mg/dL (NEGATIVE) H 10/11/20 22:50 Urine Occult Blood LARGE (NEGATIVE) H 10/11/20 22:50 Urine Nitrite NEGATIVE (NEGATIVE) 10/11/20 22:50 Urine Bilirubin NEGATIVE (NEGATIVE) 10/11/20 22:50 Urine Urobilinogen 0.2 (NORMAL) E.U./dL (NORMAL) 10/11/20 22:50 Ur Leukocyte Esterase NEGATIVE (NEGATIVE) 10/11/20 22:50 Urine RBC 0-5 /HPF (0-5) 10/11/20 22:50 Urine WBC 0-3 /HPF (0-3) 10/11/20 22:50 Ur Squamous Epith Cells RARE Squamous (<= Few) 10/11/20 22:50 Urine Bacteria Rare /HPF (None Seen) 10/11/20 22:50 Urine Casts 3-5 Course Granular /LPF 10/11/20 22:50 Urine Culture Comments NOT INDICATED 10/11/20 22:50 Urine Sodium < 12.0 mmol/L 10/12/20 04:00 Nasal Adenovirus (PCR) NOT DETECTED 10/11/20 22:34 Nasal B. parapertussis DNA (PCR) NOT DETECTED 10/11/20 22:34 Nasal Coronavir 229E PCR NOT DETECTED 10/11/20 22:34 Nasal Coronavir HKU1 PCR NOT DETECTED 10/11/20 22:34 Nasal Coronavir NL63 PCR NOT DETECTED 10/11/20 22:34 Nasal Coronavir OC43 PCR NOT DETECTED 10/11/20 22:34 Nasal Enterovir/Rhinovir PCR DETECTED A 10/11/20 22:34 Nasal Influenza B PCR NOT DETECTED 10/11/20 22:34 Nasal Influenza A PCR NOT DETECTED 10/11/20 22:34 Nasal Parainfluen 1 PCR NOT DETECTED 10/11/20 22:34 Nasal Parainfluen 2 PCR NOT DETECTED 10/11/20 22:34 Nasal Parainfluen 3 PCR NOT DETECTED 10/11/20 22:34 Nasal Parainfluen 4 PCR NOT DETECTED 10/11/20 22:34 Nasal RSV (PCR) NOT DETECTED 10/11/20 22:34 Nasal Screen MRSA (PCR) NEGATIVE (NEGATIVE) 10/13/20 19:30 Nasal B.pertussis DNA PCR NOT DETECTED 10/11/20 22:34 Nasal C.pneumoniae (PCR) NOT DETECTED 10/11/20 22:34 Adam Human Metapneumo PCR NOT DETECTED 10/11/20 22:34 Nasal M.pneumoniae (PCR) NOT DETECTED 10/11/20 22:34 Nasal SARS-CoV-2 (PCR) NOT DETECTED 10/11/20 22:34 Sepsis Event Note (H) - Evaluation Current Stage of Sepsis: Sepsis Possible source of Sepsis: positive: Pulmonary - Sepsis Criteria Sepsis Criteria: Recorded Temperature greater than 38.3C or Less than 36C, Recorded Heart Rate greater than 90 bpm, WBC count greater than 12,000 or less than 4000 ABX Reporting Has patient been on IV antibiotics over the past 48 hours?: Yes
[2020-10-15] MEDS: BACLOFEN 10 MG TABLET PO PRN (22:42)
[2020-10-15] MEDS: cefTRIAXone 2 GM in SODIUM CHLORIDE 0.9% MINIBAG 100 ML IV SCH (22:42)
[2020-10-16] MEDS: SODIUM CHLORIDE FLUSH 0.9% 10 ML SYRINGE IVP SCH ×3 (05:15→17:02)
[2020-10-16] MEDS: VANCOMYCIN INJ 2 GM in SODIUM CHLORIDE 0.9% 500 ML IV SCH ×2 (05:15→17:05)
[2020-10-16 05:40] LABS: BASOPHILS % (AUTO) 1.7 %; EOSINOPHILS % (AUTO) 4.5 %; HCT - HEMATOCRIT 41.1 % (42.0-52.0); HGB - HEMOGLOBIN 13.3 g/dL (14.0-18.0); LYMPHOCYTES % (AUTO) 17.7 %; MEAN CORPUSCULAR HEMOGLOBIN 30.9 pg (27.0-31.0); MEAN CORPUSCULAR HGB CONC 32.4 g/dL (32.0-36.0); MEAN CORPUSCULAR VOLUME 95.4 fL (80.0-94.0); MEAN PLATELET VOLUME 10.9 fL (7.4-11.4); MONOCYTES % (AUTO) 7.4 %; PLT - PLATELET COUNT 246 10^3/uL (130-450); RED BLOOD COUNT 4.31 10^6/uL (4.70-6.10); RED CELL DISTRIBUTION WIDTH 12.5 % (12.0-15.0); WHITE BLOOD COUNT 10.6 x10^3/uL (4.8-10.8)
[2020-10-16 05:42] LABS: CALCIUM 8.8 mg/dL (8.5-10.3); CREATININE 0.9 mg/dL (0.6-1.2); MAGNESIUM 2.4 mg/dL (1.7-2.8); PHOSPHORUS 3.8 mg/dL (2.5-4.6)
[2020-10-16 05:47] LABS: ABNORMAL LYMPHS % (MANUAL) 0 %
[2020-10-16 06:04] LABS: BAND NEUTROPHILS % (MANUAL) 3 %; EOSINOPHILS # (MANUAL) 0.1 10^3/uL (0-0.7); LYMPHOCYTES # (MANUAL) 2.4 10^3/uL (1.5-3.5); LYMPHOCYTES % (MANUAL) 23 %; MONOCYTES # (MANUAL) 0.7 10^3/uL (0.0-1.0); NEUTROPHILS # (MANUAL) 7.3 10^3/uL (1.5-6.6); PLATELET ESTIMATE, MANUAL NORMAL (130-450,000) (NORMAL); RBC MORPHOLOGY (MULTIPLE) NORMAL APPEARANCE (NORMAL)
[2020-10-16 06:05] LABS: DIFFERENTIAL COMMENT MANUAL DIFFERENTIAL
--- NOTE | 2020-10-16 07:29 | PROVIDER PROGRESS NOTE ---
Assessment/Plan - Problem List (1) Sepsis Qualifiers: Sepsis acute organ dysfunction status: without acute organ dysfunction Assessment/Plan: Thought to be secondary to pneumonia. WBC is 10.6 and patient is afebrile Blood cultures are no growth to date. Patient is on vancomycin and ceftriaxone. He completed a regimen of azithromycin. Test result for Legionella is pending. (2) Pneumonia Qualifiers: Pneumonia type: due to unspecified organism Laterality: right Lung location: lower lobe of lung Qualified Code(s): J18.9 - Pneumonia, unspecified organism Assessment/Plan: WBC is 10.6 and patient is afebrile Blood cultures are no growth to date. Patient is on vancomycin and ceftriaxone. He completed a regimen of azithromycin. Test result for Legionella is pending. (3) Pulmonary edema Assessment/Plan: Patient had a total urine output of 6 L yesterday after a total of 60 mg IV of Lasix. His fluid intake yesterday was 3 L. Will administer 40 mg of Lasix IV today. The risks mild crackles noted on auscultation of the lungs. Anticipating improvement in patient's respiratory status with diuresis. If patient is able to tolerate being off BiPAP, will consider making him MedSurg status today If he is able to tolerate ambulating without desaturation and his respiration, will consider discharge home tomorrow. (4) Abnormal LFTs Assessment/Plan: Improved/resolved. (5) Respiratory failure Assessment/Plan: Likely multifactorial. Secondary to pneumonia, pulmonary edema and possibly sleep apnea. Patient is receiving IV antibiotics for pneumonia. Lasix is being administered for pulmonary edema. He would need to follow-up with his primary care physician in the outpatient setting for sleep study. The patient will benefit from a CPAP at home. - Current Meds Current Meds: Current Medications Generic Name Dose Route Start Last Admin Trade Name Freq PRN Reason Stop Dose Admin Albuterol 2.5 mg 10/12/20 19:16 10/13/20 16:11 Albuterol Neb 2.5 Mg/3 Ml INH 2.5 mg Q2HR PRN Administration Wheezing Albuterol/Ipratropium 3 ml 10/12/20 19:16 10/14/20 09:35 Ipratropium/Albuterol 3 Ml Neb INH 3 ml Q4HR PRN Administration Wheezing Baclofen 10 mg 10/12/20 15:39 10/15/20 22:42 Baclofen 10 Mg Tablet PO 10 mg TID PRN Administration Hiccups Enoxaparin Sodium 40 mg 10/12/20 09:00 10/15/20 09:22 Enoxaparin 40 Mg/0.4 Ml Syringe SUBQ 40 mg DAILY SILVANA Administration Furosemide 20 mg 10/14/20 09:00 10/15/20 09:25 Furosemide 20 Mg/2 Ml Vial IVP 20 mg DAILY SILVANA Administration Guaifenesin 1,200 mg 10/14/20 13:00 10/15/20 22:42 Guaifenesin 600 Mg Tablet PO 1,200 mg BID SILVANA Administration Vancomycin HCl 2 gm/ Sodium 500 mls @ 250 mls/hr 10/15/20 05:00 10/16/20 05:15 Chloride IV 250 mls/hr Q12H SILVANA Administration Ibuprofen 400 mg 10/11/20 23:41 10/13/20 20:22 Ibuprofen 400 Mg Tablet PO 400 mg Q6HR PRN Administration Pain or Fever > 38C (100.4F) Lactobacillus Rhamnosus 1 cap 10/14/20 09:00 10/15/20 09:26 Lactobacillus Rhamnosus Gg Capsule PO 1 cap DAILY SILVANA Administration Morphine Sulfate 1 mg 10/13/20 20:45 10/14/20 02:42 Morphine 2 Mg/Ml Carpuject IVP 1 mg Q4HR PRN Administration Dyspnea Simethicone 80 mg 10/12/20 13:24 10/13/20 11:48 Simethicone Chew 80 Mg Tablet PO 80 mg Q6HR PRN Administration Gas Sodium Chloride 10 ml 10/12/20 01:00 10/16/20 05:15 Sodium Chloride Flush 0.9% 10 Ml Syringe IVP 10 ml 0100,0900,1700 SILVANA Administration Sodium Chloride 10 ml 10/11/20 23:03 10/15/20 19:15 Sodium Chloride Flush 0.9% 10 Ml Syringe IVP 10 ml PRN PRN Administration NEEDED PER PROVIDER ORDERS - Lab Result Fish Bone Diagrams: 10/16/20 04:30 10/16/20 04:30 - Additional Planning My Orders: My Active Orders 10/15/20 15:21 Vital Signs [RC] Q4HR 10/17/20 05:00 BMP - BASIC METABOLIC PANEL [CHEM] DAILYLAB CBC - COMP BLD CT W/AUTO DIFF [HEME] DAILYLAB 10/18/20 05:00 BMP - BASIC METABOLIC PANEL [CHEM] DAILYLAB CBC - COMP BLD CT W/AUTO DIFF [HEME] DAILYLAB 10/19/20 05:00 BMP - BASIC METABOLIC PANEL [CHEM] DAILYLAB CBC - COMP BLD CT W/AUTO DIFF [HEME] DAILYLAB 10/20/20 05:00 BMP - BASIC METABOLIC PANEL [CHEM] DAILYLAB CBC - COMP BLD CT W/AUTO DIFF [HEME] DAILYLAB 10/21/20 05:00 BMP - BASIC METABOLIC PANEL [CHEM] DAILYLAB CBC - COMP BLD CT W/AUTO DIFF [HEME] DAILYLAB Subjective - Subjective Patient Reports: Other (Doing better. Denies any new complain. Had just come off the bipap. Crackles still noted in right upper lungs and diminished breath sounds in lung bases bilaterally) Objective Vital Signs: Vital Signs - 24 hr 10/15/20 10/15/20 10/15/20 08:00 08:30 09:00 Temperature 36.4 C L Heart Rate Heart Rate [ 71 92 Monitoring electrodes] Respiratory 18 19 Rate Blood Pressure 130/78 150/77 H [Left Brachial artery] O2 Saturation 97 97 10/15/20 10/15/20 10/15/20 10:00 11:00 12:00 Temperature 37 C Heart Rate Heart Rate [ 70 83 77 Monitoring electrodes] Respiratory 21 31 H 18 Rate Blood Pressure 154/79 H 146/84 H 140/89 H [Left Brachial artery] O2 Saturation 100 96 97 10/15/20 10/15/20 10/15/20 16:53 19:55 22:30 Temperature 37.1 C 37.1 C Heart Rate 76 Heart Rate [ 93 93 Monitoring electrodes] Respiratory 18 21 Rate Blood Pressure 126/85 H 131/83 H [Left Brachial artery] O2 Saturation 93 99 10/15/20 10/16/20 10/16/20 23:00 04:00 04:59 Temperature 37.0 C 36.9 C Heart Rate 62 Heart Rate [ 81 66 Monitoring electrodes] Respiratory 21 25 H Rate Blood Pressure 132/93 H 152/88 H [Left Brachial artery] O2 Saturation 98 97 Oxygen O2 Source BIPAP I&O (Last 24 Hrs): Intake and Output Totals x24h 10/14/20 10/15/20 10/16/20 23:59 23:59 23:59 Intake Total 2140 3220 350 Output Total 7661 0322 6373 [facility] -[phone] [phone] General: Alert, Oriented x3, No acute distress HEENT: PERRLA, EOMI Neck: Supple, No JVD Neuro: Alert, Non Focal, Oriented Times 3 Cardiovascular: Regular rate, No murmurs Respiratory: Chest non-tender, Other (mild crackles in right upper lungs. diminished breath sounds in lung bases bilaterally) Abdomen: Normal bowel sounds, Soft, No tenderness, No masses Extremities: No clubbing, No cyanosis, No edema, No tenderness/swelling Skin: No rashes, No breakdown - Results Results: Laboratory Results WBC 10.6 x10^3/uL (4.8-10.8) 10/16/20 04:30 RBC 4.31 10^6/uL (4.70-6.10) L 10/16/20 04:30 Hgb 13.3 g/dL (14.0-18.0) L 10/16/20 04:30 Hct 41.1 % (42.0-52.0) L 10/16/20 04:30 MCV 95.4 fL (80.0-94.0) H 10/16/20 04:30 MCH 30.9 pg (27.0-31.0) 10/16/20 04:30 MCHC 32.4 g/dL (32.0-36.0) 10/16/20 04:30 RDW 12.5 % (12.0-15.0) 10/16/20 04:30 Plt Count 246 10^3/uL (130-450) 10/16/20 04:30 MPV 10.9 fL (7.4-11.4) 10/16/20 04:30 Neut # (Auto) Not Reportable 10/16/20 04:30 Lymph # (Auto) Not Reportable 10/16/20 04:30 Bremer # (Auto) Not Reportable 10/16/20 04:30 Eos # (Auto) Not Reportable 10/16/20 04:30 Baso # (Auto) Not Reportable 10/16/20 04:30 Absolute Nucleated RBC Not Reportable 10/16/20 04:30 Total Counted 100 10/16/20 04:30 Band Neuts % (Manual) 3 % (0-10) 10/16/20 04:30 Abnorm Lymph % (Manual) 0 % 10/16/20 04:30 Myelocytes % 1 % (-0) H 10/14/20 04:40 Nucleated RBC % Not Reportable 10/16/20 04:30 Neutrophils # (Manual) 7.3 10^3/uL (1.5-6.6) H 10/16/20 04:30 Lymphocytes # (Manual) 2.4 10^3/uL (1.5-3.5) 10/16/20 04:30 Monocytes # (Manual) 0.7 10^3/uL (0.0-1.0) 10/16/20 04:30 Eosinophils # (Manual) 0.1 10^3/uL (0-0.7) 10/16/20 04:30 Basophils # (Manual) 0.0 10^3/uL (0-0.1) 10/16/20 04:30 Differential Comment MANUAL DIFFERENTIAL 10/16/20 04:30 WBC Morphology NORMAL APPEARANCE (NORMAL) 10/15/20 04:48 Platelet Estimate NORMAL (130-450,000) (NORMAL) 10/16/20 04:30 Platelet Morphology NORMAL APPEARANCE (NORMAL) 10/15/20 04:48 RBC Morph Micro Appear NORMAL APPEARANCE (NORMAL) 10/16/20 04:30 Bld Gas Analysis Time 204910/13/20 20:43 Sample Site LEFT RADIAL 10/13/20 20:43 ABG pH 7.53 (7.35-7.45) H 10/13/20 20:43 ABG pCO2 27 mmHg (34-45) L 10/13/20 20:43 ABG pO2 91 mmHg (80-100) 10/13/20 20:43 ABG HCO3 21.7 mmol/L (22.0-26.0) L 10/13/20 20:43 ABG Total CO2 22.6 MMOL/L (21.0-29.0) 10/13/20 20:43 ABG O2 Saturation 98 % (94-98) 10/13/20 20:43 ABG Base Excess 0.3 mmol/L (-2.0-3.0) 10/13/20 20:43 Shawn Test POSITIVE 10/13/20 20:43 O2 Delivery Device BiPAP 10/13/20 20:43 FiO2 30.00 10/13/20 20:43 EPAP 5 cmH2O 10/13/20 20:43 IPAP 15 cmH2O 10/13/20 20:43 Sodium 136 mmol/L (135-145) 10/16/20 04:30 Potassium 4.0 mmol/L (3.5-5.0) 10/16/20 04:30 Chloride 99 mmol/L (101-111) L 10/16/20 04:30 Carbon Dioxide 26 mmol/L (21-32) 10/16/20 04:30 Anion Gap 11.0 (6-13) 10/16/20 04:30 BUN 15 mg/dL (6-20) 10/16/20 04:30 Creatinine 0.9 mg/dL (0.6-1.2) 10/16/20 04:30 Estimated GFR (MDRD) 88 (>89) L 10/16/20 04:30 Glucose 100 mg/dL (70-100) 10/16/20 04:30 POC Whole Bld Glucose 195 mg/dL (70 - 100) H 10/12/20 12:00 Lactic Acid 1.5 mmol/L (0.5-2.2) 10/11/20 21:45 Uric Acid 5.2 mg/dL (2.6-7.2) 10/11/20 23:59 Calcium 8.8 mg/dL (8.5-10.3) 10/16/20 04:30 Phosphorus 3.8 mg/dL (2.5-4.6) 10/16/20 04:30 Magnesium 2.4 mg/dL (1.7-2.8) 10/16/20 04:30 Total Bilirubin 0.7 mg/dL (0.2-1.0) 10/14/20 04:40 Direct Bilirubin 0.1 mg/dL (0.1-0.5) 10/14/20 04:40 AST 98 IU/L (10-42) H 10/14/20 04:40 ALT 107 IU/L (10-60) H 10/14/20 04:40 Alkaline Phosphatase 61 IU/L (42-121) 10/14/20 04:40 C-Reactive Protein 25.3 mg/dL (0-1.0) H 10/11/20 21:45 Total Protein 6.2 g/dL (6.7-8.2) L 10/14/20 04:40 Albumin 2.9 g/dL (3.2-5.5) L 10/15/20 04:48 Globulin 3.2 g/dL (2.1-4.2) 10/14/20 04:40 Albumin/Globulin Ratio 0.9 (1.0-2.2) L 10/11/20 21:45 Urine Color YELLOW 10/11/20 22:50 Urine Clarity CLEAR (CLEAR) 10/11/20 22:50 Urine pH 6.0 PH (5.0-7.5) 10/11/20 22:50 Ur Specific [place] 1.010 (1.002-1.030) 10/11/20 22:50 Urine Protein 100 mg/dL (NEGATIVE) H 10/11/20 22:50 Urine Glucose (UA) NEGATIVE mg/dL (NEGATIVE) 10/11/20 22:50 Urine Ketones 40 mg/dL (NEGATIVE) H 10/11/20 22:50 Urine Occult Blood LARGE (NEGATIVE) H 10/11/20 22:50 Urine Nitrite NEGATIVE (NEGATIVE) 10/11/20 22:50 Urine Bilirubin NEGATIVE (NEGATIVE) 10/11/20 22:50 Urine Urobilinogen 0.2 (NORMAL) E.U./dL (NORMAL) 10/11/20 22:50 Ur Leukocyte Esterase NEGATIVE (NEGATIVE) 10/11/20 22:50 Urine RBC 0-5 /HPF (0-5) 10/11/20 22:50 Urine WBC 0-3 /HPF (0-3) 10/11/20 22:50 Ur Squamous Epith Cells RARE Squamous (<= Few) 10/11/20 22:50 Urine Bacteria Rare /HPF (None Seen) 10/11/20 22:50 Urine Casts 3-5 Course Granular /LPF 10/11/20 22:50 Urine Culture Comments NOT INDICATED 10/11/20 22:50 Urine Sodium < 12.0 mmol/L 10/12/20 04:00 Nasal Adenovirus (PCR) NOT DETECTED 10/11/20 22:34 Nasal B. parapertussis DNA (PCR) NOT DETECTED 10/11/20 22:34 Nasal Coronavir 229E PCR NOT DETECTED 10/11/20 22:34 Nasal Coronavir HKU1 PCR NOT DETECTED 10/11/20 22:34 Nasal Coronavir NL63 PCR NOT DETECTED 10/11/20 22:34 Nasal Coronavir OC43 PCR NOT DETECTED 10/11/20 22:34 Nasal Enterovir/Rhinovir PCR DETECTED A 10/11/20 22:34 Nasal Influenza B PCR NOT DETECTED 10/11/20 22:34 Nasal Influenza A PCR NOT DETECTED 10/11/20 22:34 Nasal Parainfluen 1 PCR NOT DETECTED 10/11/20 22:34 Nasal Parainfluen 2 PCR NOT DETECTED 10/11/20 22:34 Nasal Parainfluen 3 PCR NOT DETECTED 10/11/20 22:34 Nasal Parainfluen 4 PCR NOT DETECTED 10/11/20 22:34 Nasal RSV (PCR) NOT DETECTED 10/11/20 22:34 Nasal Screen MRSA (PCR) NEGATIVE (NEGATIVE) 10/13/20 19:30 Nasal B.pertussis DNA PCR NOT DETECTED 10/11/20 22:34 Nasal C.pneumoniae (PCR) NOT DETECTED 10/11/20 22:34 Adam Human Metapneumo PCR NOT DETECTED 10/11/20 22:34 Nasal M.pneumoniae (PCR) NOT DETECTED 10/11/20 22:34 Nasal SARS-CoV-2 (PCR) NOT DETECTED 10/11/20 22:34 Ur L.pneumophila Ag NOT DETECTED 10/11/20 22:50 Sepsis Event Note (H) - Evaluation Current Stage of Sepsis: Sepsis Possible source of Sepsis: positive: Pulmonary - Sepsis Criteria Sepsis Criteria: Recorded Temperature greater than 38.3C or Less than 36C, Recorded Heart Rate greater than 90 bpm, WBC count greater than 12,000 or less than 4000 ABX Reporting Has patient been on IV antibiotics over the past 48 hours?: Yes
[2020-10-16] MEDS: guaiFENesin 600 MG TABLET PO SCH ×2 (08:39→20:44)
[2020-10-16] MEDS: LACTOBACILLUS RHAMNOSUS GG CAPSULE PO SCH (08:40)
[2020-10-16] MEDS: ENOXAPARIN 40 MG/0.4 ML SYRINGE SUBQ SCH (08:44)
[2020-10-16] MEDS ORDERED: FUROSEMIDE 20 MG/2 ML VIAL IVP STA (09:17)
[2020-10-16] MEDS: FUROSEMIDE 20 MG/2 ML VIAL IVP SCH (09:35)
[2020-10-16 16:51] LABS: VANCOMYCIN,TROUGH 13.5 ug/mL (10.0-20.0)
[2020-10-17 04:37] LABS: BASOPHILS % (AUTO) 1.4 %; EOSINOPHILS % (AUTO) 4.1 %; HCT - HEMATOCRIT 42.1 % (42.0-52.0); HGB - HEMOGLOBIN 13.7 g/dL (14.0-18.0); MEAN CORPUSCULAR HGB CONC 32.5 g/dL (32.0-36.0); MEAN CORPUSCULAR VOLUME 95.2 fL (80.0-94.0); MEAN PLATELET VOLUME 10.5 fL (7.4-11.4); MONOCYTES % (AUTO) 7.4 %; NEUTROPHILS % (AUTO) 52.1 %; PLT - PLATELET COUNT 274 10^3/uL (130-450); RED BLOOD COUNT 4.42 10^6/uL (4.70-6.10); RED CELL DISTRIBUTION WIDTH 12.5 % (12.0-15.0); WHITE BLOOD COUNT 10.3 x10^3/uL (4.8-10.8)
[2020-10-17 04:44] LABS: CALCIUM 8.7 mg/dL (8.5-10.3); CREATININE 0.8 mg/dL (0.6-1.2); POTASSIUM 4.2 mmol/L (3.5-5.0)
[2020-10-17 04:47] LABS: ABNORMAL LYMPHS % (MANUAL) 0 %
[2020-10-17] MEDS: SODIUM CHLORIDE FLUSH 0.9% 10 ML SYRINGE IVP SCH ×2 (05:04→09:54)
[2020-10-17] MEDS: VANCOMYCIN INJ 2 GM in SODIUM CHLORIDE 0.9% 500 ML IV SCH (05:05)
[2020-10-17 05:11] LABS: BAND NEUTROPHILS % (MANUAL) 7 %; DIFFERENTIAL COMMENT MANUAL DIFFERENTIAL; EOSINOPHILS # (MANUAL) 0.2 10^3/uL (0-0.7); LYMPHOCYTES # (MANUAL) 1.9 10^3/uL (1.5-3.5); LYMPHOCYTES % (MANUAL) 18 %; METAMYELOCYTES % (MANUAL) 3 %; MONOCYTES # (MANUAL) 0.8 10^3/uL (0.0-1.0); MYELOCYTES % (MANUAL) 2 %; NEUTROPHILS # (MANUAL) 6.9 10^3/uL (1.5-6.6); PLATELET ESTIMATE, MANUAL NORMAL (130-450,000) (NORMAL); RBC MORPHOLOGY (MULTIPLE) NORMAL APPEARANCE (NORMAL)
[2020-10-17 07:41] VITALS: BP 131/85
--- NOTE | 2020-10-17 07:51 | Discharge Plan ---
Discharge Plan Problem Reviewed?: Yes Disposition: 01 Home, Self Care Condition: Stable Prescriptions: Amox/Clav 875/125 [Augmentin 875/125 Tab] 1 tablet PO Q12H 5 Days #10 tablet Diet: Regular Activity Restrictions: Activity as Tolerated Driving Restrictions: No Health Concerns: You were admitted on 10/11/20 with complaint of feeling ill. You were noted to have a fever and rapid heart rate in the emergency department. Further work-up included a chest x-ray which was concerning for pneumonia. Your sodium level was 112. Over the course of 6 days you were treated with IV antibiotics vancomycin, Rocephin and azithromycin and you received IV hydration. Your sodium corrected and your symptoms related to the pneumonia improved/resolved. You are being discharged home with a 5-day prescription of Augmentin 875/125 to take 1 tablet every 12 hours. You have been advised to follow-up with a primary care physician for referral for a sleep study. You will benefit from a CPAP. During your hospital stay you required BiPAP nightly. You were given a list of primary care physicians in the area to choose from. The above plan was discussed with you and your . You expressed understanding and are in agreement. Plan of Treatment: You were admitted on 10/11/20 with complaint of feeling ill. You were noted to have a fever and rapid heart rate in the emergency department. Further work-up included a chest x-ray which was concerning for pneumonia. Your sodium level was 112. Over the course of 6 days you were treated with IV antibiotics vancomycin, Rocephin and azithromycin and you received IV hydration. Your sodium corrected and your symptoms related to the pneumonia improved/resolved. You are being discharged home with a 5-day prescription of Augmentin 875/125 to take 1 tablet every 12 hours. You have been advised to follow-up with a primary care physician for referral for a sleep study. You will benefit from a CPAP. During your hospital stay you required BiPAP nightly. You were given a list of primary care physicians in the area to choose from. The above plan was discussed with you and your . You expressed unders tanding and are in agreement. Care Goals: You were admitted on 10/11/20 with complaint of feeling ill. You were noted to have a fever and rapid heart rate in the emergency department. Further work-up included a chest x-ray which was concerning for pneumonia. Your sodium level was 112. Over the course of 6 days you were treated with IV antibiotics vancomycin, Rocephin and azithromycin and you received IV hydration. Your sodium corrected and your symptoms related to the pneumonia improved/resolved. You are being discharged home with a 5-day prescription of Augmentin 875/125 to take 1 tablet every 12 hours. You have been advised to follow-up with a primary care physician for referral for a sleep study. You will benefit from a CPAP. During your hospital stay you required BiPAP nightly. You were given a list of primary care physicians in the area to choose from. The above plan was discussed with you and your . You expressed understanding and are in agreement. Assessment: You were admitted on 10/11/20 with complaint of feeling ill. You were noted to have a fever and rapid heart rate in the emergency department. Further work-up included a chest x-ray which was concerning for pneumonia. Your sodium level was 112. Over the course of 6 days you were treated with IV antibiotics vancomycin, Rocephin and azithromycin and you received IV hydration. Your sodium corrected and your symptoms related to the pneumonia improved/resolved. You are being discharged home with a 5-day prescription of Augmentin 875/125 to take 1 tablet every 12 hours. You have been advised to follow-up with a primary care physician for referral for a sleep study. You will benefit from a CPAP. During your hospital stay you required BiPAP nightly. You were given a list of primary care physicians in the area to choose from. The above plan was discussed with you and your . You expressed understanding and are in agreement. No Smoking: If you smoke, Please STOP! Call for help.
--- NOTE | 2020-10-17 07:51 | DISCHARGE SUMMARY ---
"Discharge Summary Admit Date: 10/12/19 Discharge Date: 10/17/20 Discharging Provider: Cynthia Solomon Code Status: Attempt Resuscitation Condition at Discharge: Stable Discharge Disposition: 01 Home, Self Care - DIAGNOSES Admission Diagnoses: Sepsis Community-acquired pneumonia Hyponatremia Abnormal LFTs Discharge Diagnoses with Status of Each Condition: Sepsis: Acute. Resolved Community-acquired pneumonia: Acute. Improving/resolved. 5 more days of A ugmentin ordered Hyponatremia: Acute. Resolved Abnormal LFTs: Acute. Improved/Resolved - HPI History of Present Illness: This is a 55-year-old male with no significant past medical history who presents today complaining of feeling ill for the past 5 days. He states his symptoms began on Wednesday with fevers and chills. He was tested for Covid 2 days ago and this came back negative. He reports receiving the [employer] vaccine a few months ago. He denies feeling short of breath but does report a cough. He has had associated fatigue, malaise. He reports no nausea or vomiting but has been having diarrhea the past few days as well. He is having 2-3 liquid bowel movements a day. He reports no chest pain, dysuria, urgency. He has had poor a ppetite and poor oral intake over the past few days as well. He has been taking Tylenol as needed for his fevers. Given his lack of improvement, he decided to come to the ER today. He reports no recent sick contacts. His and daughter at home are not ill. 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 In the emergency department, he was found to be febrile with a temperature of 38.7 C. He is tachycardic with a heart rate in the 110s. His blood pressure was 134/85. He was tachypneic with respiratory rate in the mid to high 20s but he was saturating well on room air. Labs were significant for white count of 12.2 with a left shift. His sodium was 112, potassium 3.3, chloride 82, bicarbonate 17. His total bilirubin was 1.2, AST 217, ALT 89. Chest x-ray revealed a right lower lobe infiltrate. Given the above findings, medicine was consulted for admission. - CONSULTS | PROCEDURES Procedures: 2D echocardiogram showed the left ventricular size is normal. Mild concentric l eft ventricular hypertrophy. Overall left ventricular systolic function is normal with an ejection fraction of 65 to 70%. It showed severe right ventricular enlargement. The right ventricular systolic function was normal. It also showed moderate to severe right atrial enlargement. - HOSPITAL COURSE Hospital Course: Patient was admitted to the ICU and started on vancomycin and Rocephin. This was maintained throughout his hospital course. He also received full dose of azithromycin over 3 days. He was tested for Legionella and was negative. His sodium level was corrected and by the time of discharge it was 135. He required BiPAP nightly during his hospital stay. His 2D echocardiogram showed severe right atrial and ventricular enlargement. This was thought to be secondary to sleep apnea. He also had a CT angio of the chest done which was negative for PE but showed pneumonitis and pulmonary edema. He was given Lasix for 4 days. He diuresed well over this time and was able to maintain his oxygen saturation above 90 while ambulating on room air. He was advised to follow-up with a primary care physician for sleep study because he would likely benefit from a CPAP at home. He expressed understanding to this and plan to do so. He was discharged with a prescription of Augmentin 875/125 mg p.o. twice daily for 5 days. He was discharged in stable condition. - ALLERGIES Allergies/Adverse Reactions: Allergies Allergy/AdvReac Type Severity Reaction Status Date / Time No Known Drug Allergies Allergy Verified 10/11/20 21:27 - MEDICATIONS Home Medications: Ambulatory Orders Medication Instructions Recorded Confirmed Acetaminophen [Tylenol Extra 1,000 mg PO DAILY PRN 10/12/20 10/12/20 Strength] Calcium Carbonate [Tums (Calcium 500 mg PO Q4H PRN 10/12/20 10/12/20 Carbonate 500mg)] Ibuprofen 600 mg PO DAILY 10/12/20 10/12/20 Multivitamin 1 each PO DAILY 10/12/20 10/12/20 Amox/Clav 875/125 [Augmentin 1 tablet PO Q12H 5 Days #10 tablet 10/17/20 875/125 Tab] - PHYSICAL EXAM AT DISCHARGE General Appearance: positive: No acute distress, Alert Eyes Bilateral: positive: PERRL, EOMI ENT: positive: No signs of dehydration Neck: positive: No JVD, Trachea midline Respiratory: positive: Chest non-tender, No respiratory distress, Rales (mild crackles in right lower lobe) Cardiovascular: positive: Regular rate & rhythm, No murmur Abdomen: positive: Non-tender, No organomegaly, Nml bowel sounds, No distention. negative: Guarding, Rebound Back: positive: Nml inspection Skin: positive: Color nml, No rash, Warm, Dry Extremities: positive: Non-tender, Full ROM, Nml appearance, No pedal edema Neurologic/Psychiatric: positive: Oriented x3, Mood/affect nml - LABS Result Diagrams: 10/17/20 04:15 10/17/20 04:15 - SEPSIS Current Stage of Sepsis: Sepsis Possible source of Sepsis: Pulmonary Sepsis Criteria: Recorded Temperature greater than 38.3C or Less than 36C, Recorded Heart Rate greater than 90 bpm, WBC count greater than 12,000 or less than 4000 - TIME SPENT Time Spent in Discharge (Minutes): 25"
[2020-10-17] MEDS: guaiFENesin 600 MG TABLET PO SCH (09:48)
[2020-10-17] MEDS: FUROSEMIDE 20 MG/2 ML VIAL IVP SCH (09:48)
[2020-10-17] MEDS: LACTOBACILLUS RHAMNOSUS GG CAPSULE PO SCH (09:48)
[2020-10-17] MEDS: ENOXAPARIN 40 MG/0.4 ML SYRINGE SUBQ SCH (09:55)
== END 2020-10-17 13:15 | disposition home or self-care (01) | DRG 871 ==
LOC: ED 21:22 → MS3 23:03 → ICU 10-12 00:14 → MS2 10-12 16:02 → ICU 10-13 19:47
PROVIDERS: ADMIT Internal Medicine; ATTEND Internal Medicine
DX: A41.9 Sepsis, unspecified organism (principal); J18.9 Pneumonia, unspecified organism; J96.90 Respiratory failure, unspecified, unspecified whether with hypoxia or hypercapnia; E87.1 Hypo-osmolality and hyponatremia; J81.1 Chronic pulmonary edema; R79.89 Other specified abnormal findings of blood chemistry; I51.7 Cardiomegaly; G47.30 Sleep apnea, unspecified; Z20.822 Contact with and (suspected) exposure to COVID-19; Z87.891 Personal history of nicotine dependence
CPT/HCPCS: 0202U; 36415; 36600; 71045; 71046; 71275; 80048; 80053; 80076; 80202; 81001; 82040; 82803; 83605; 83735; 84100; 84300; 84550; 85025; 86140; 87040; 87150; 87449; 93306; 94640; 94660; 96365; 96368; 96375; 99284; 99285; A9270; J1650; J3370; J7040; Q9967; 87086

== ENCOUNTER 2020-11-12 15:25 | Outpatient (CLI) | payer OTHER ==
[2020-11-12 16:08] VITALS: BP 132/80
--- NOTE | 2020-11-12 16:08 | SLEEP CARE CONSULTATION ---
Information from patient questionnaire entered by Yoana Dumas. I have reviewed and concur with the information entered by Yoana Dumas. This document represents the service I personally performed and the decisions made by me, Ruth Ann Stacy ARNP. History of Present Illness Service Date and Time: 11/12/2020 1525 Reason for Visit: New patient Chief Complaint: reports: Unrefreshed sleep, Snoring, Observed pauses in breathing, Other (medical staff at hospital recommended sleep study) Date of Onset: 10 years plus Usual bedtime: 11 pm - 12:30 am Time it takes to fall asleep: not long Snores at night: Yes Observed to quit breathing while asleep: Yes Sleeps alone due to snoring: No Number of times waking at night: 0-1 Reasons for waking at night: reports: Gasping for air, Bathroom, Other (unknown reason) Toss, Turn, or Twitch while sleeping: No Recalls having dreams: Yes Usually gets out of bed at: 7 - 7:30 am Feels refreshed in the morning: No Morning headache: No Sleepy or fatigued during the day: Yes Ever fallen asleep while driving: No Takes day naps: No (Sometimes) Prior sleep studies: No Additional HPI information: I had the pleasure of seeing MIKEY CÁRDENAS today regarding the possibility of him having a sleep disorder. His current complaints are observed pauses in breathing, snoring and unrefreshed sleep. He was in the hospital with pneumonia and it was noted that he had hypertropy of his right and left ventricles and right atrial enlargement. He was on a BIPAP while in the hospital and he states he slept much better when on the BIPAP. They recommended that he have a sleep study. He has snored loudly for a long time. He states the pauses in breathing has been in the past. He has woken up gasping for air. He does not feel rested when he awakens in the morning. He states he is sleepy during the day but normally orozco not take a nap. He denies any drowsy driving. He thinks his sister is also snorer and she had some extensive surgery of her oropharyngeal area but he does not know exact reason why. - Parasomnia Symptoms Ever been unable to move upon waking from sleep: No Walks in sleep: No Talks in sleep: No Ever acted out dreams in sleep: Yes (not often) Ever felt weak in the knees when startled or emotional: No Bothered by creepy, crawly, restless sensations in legs: No Problems with memory or concentration: No Subjective Initial [place] Sleepiness Scale score: 8 (in 2020) Past Medical History Past Medical History: reports: Other (recent pneumonia and found to have ventricular hypertrophy and right atrial enlargement) Social History The patient's occupation is a TEACHER. Patient is and lives in [place]. Have you smoked in the past 12 months: No Cigarettes per day (20/pack): 10 Years of smokin Quit date: 1996 Smoking Pack Years: 2.5 Alcohol use: No Caffeine use: Yes Caffeine amount and frequency: 3 drinks daily Family History Family history of sleep disordered breathing: No Family Hx Sleep Apnea: Sibling: Snoring Allergies and Home Medications Drug allergies reviewed: Yes (NKDA) Home medication list reviewed: Yes Allergy and home medication list: Ibuprofen, prn Review of Systems Weight gain over past 5 years: 25 Cardiovascular: denies: high blood pressure Gastrointestinal: denies: heartburn Neurological: denies: headaches Psychiatric: denies: anxiety, depression Ear/Nose/Throat: reports: nasal congestion, tonsillectomy. denies: injury to nose, wisdom teeth removed Endocrine: denies: thyroid disease Physical Exam Blood Pressure: 132/80 Cuff size: long Heart Rate: 67 O2 Saturation: 97 Height: 6 ft 1 in Weight: 259 lb Body Mass Index: 34.2 BMI Classification: Obese Neck circumference: 17.75 (inches) Nostrils: patent to airflow Mouth and throat: narrow oropharynx Soft palate: long Uvula visualization: 50% Mallampati Class II Tongue: enlarged in size with teeth wright on lateral edges Tonsils: absent bilaterally Neck: normal w/o lymphadenopathy or thyromegaly Heart: regular rate and rhythm Lungs: clear bilaterally Impression and Plan 1. Suspected Obstructive Sleep Apnea-Hypopnea Syndrome, as suggested by a history of loud and irregular snoring, observed cessation of breath while asleep, gasping or choking in sleep, unrefreshed sleep, and excessive daytime sleepiness. Narrow oropharynx and obesity are common predisposing factors for obstructive sleep apnea-hypopnea syndrome. I recommend proceeding to polysomnography to confirm the diagnosis and to assess severity. If the patient has significant sleep disordered breathing, a manual CPAP titration study will also be performed to find the optimal treatment pressure. I informed the patient of what the sleep studies involve and after some discussion, obtained agreement to proceed. The pathophysiology of obstructive sleep apnea-hypopnea syndrome was discussed with the patient and health risks of cardiovascular and cerebrovas cular disease if not treated. AAS brochure for obstructive sleep apnea-hypopnea syndrome given and reviewed. Risks of drowsy driving discussed in detail and patient advised to avoid long distance driving and to pulley man at the first sign of drowsiness. Patient agreed to plan. * Schedule polysomnography +- manual CPAP titration study and return in 1-2 weeks after the study to discuss result and initiate therapy. * Avoid long distance driving or driving when feeling sleepy. * Avoid alcohol, sedative and muscle relaxant around bedtime. * Attempt to lose weight. * Review instructions provided by trained office staff on how to prepare for the sleep study. * Return for follow-up after sleep study completed. Counseling Topics: Weight loss health impact Visit Type: In Office Time Spent with Patient (minutes): 31 Provider Statement: I spent 100% of the Face to Face Visit with the patient with greater than 50% spent counseling the patient and coordination of care.
== END 2020-11-12 15:26 | disposition home or self-care (01) ==
LOC: SC 15:25
PROVIDERS: ATTEND Nurse Practitioner Family
DX: G47.10 Hypersomnia, unspecified (principal); G47.8 Other sleep disorders; R06.81 Apnea, not elsewhere classified; R06.83 Snoring; E66.9 Obesity, unspecified; Z68.34 Body mass index [BMI] 34.0-34.9, adult; Z87.891 Personal history of nicotine dependence
CPT/HCPCS: 99203; 99212

== ENCOUNTER 2020-12-24 09:59 | Outpatient (CLI) | payer OTHER | END 2020-12-24 10:00 | disposition home or self-care (01) | LOC: SC 09:59 | PROVIDERS: ATTEND Nurse Practitioner Family | DX: G47.33 Obstructive sleep apnea (adult) (pediatric) (principal); R09.02 Hypoxemia; R00.0 Tachycardia, unspecified | CPT/HCPCS: 95806 ==

== ENCOUNTER 2020-12-31 11:28 | Outpatient (CLI) | payer OTHER ==
--- NOTE | 2020-12-31 11:57 | SLEEP CARE CONSULTATION ---
Information from patient questionnaire entered by Yoana Dumas. I have reviewed and concur with the information entered by Yoana Dumas. This document represents the service I personally performed and the decisions made by , Ruth Ann Stacy ARNP. History of Present Illness Service Date and Time: 12/31/2020 112 Initial [place] Sleepiness Scale score: 8 (in 2020) Current [place] Sleepiness Scale score: 7 Additional HPI information: MIKEY CÁRDENAS returns for follow up and results of the recently performed home sleep study. I explained the pathophysiology behind obstructive sleep apnea. We then spent quite a bit of time discussing different treatment options. For mild obstructive sleep apnea, surgery and oral appliance are alternatives to nasal CPAP therapy but in moderate or severe cases, nasal CPAP is the most effective and reliable treatment. Because apnea is primarily in supine position, then positional management therapy could be effective. Methods discussed such as positioning with pillows, using a T-shirt with tennis balls in the back, and shown commercial products that have a pillow format on back to prevent supine sleep. I reviewed the impact of weight changes on sleep apnea and strongly recommended losing weight. After some discussion, the patient opted to go with the nasal CPAP therapy. Nasal autoCPAP set at 4-15 cmH20 will be ordered with rationale explained. A manual titration study will be ordered if unable to find optimal pressure with office adjustments. I explained how CPAP machine works with sample devices Respironics Dreamstation and ResOmate [id number] and what to expect when using the machine. Using CPAP every night in order to get used to it was emphasized. Patient advised to put CPAP mask on before getting into bed so as not to fall asleep without CPAP. To assist acclimation to CPAP use, it could also be used for a short time during day while reading or watching TV. The patient was instructed to call the CPAP supplier to discuss any mechanical problem that may occur. If the mask given is uncomfortable or is difficult to keep on through the night even with adjustment, contact the CPAP supplier as many will replace with another mask style if notified before 30 days. If snoring or perceives is not getting enough air or too much air from the machine, notify this office. AAS patient education PAP tips reviewed and given to patient. Patient does not drink alcohol. Patient was cautioned about risks of drowsy driving until sleepiness symptoms resolve. Sleep Study - Results Type of Sleep Study: Home sleep study Prior sleep studies: No Polysomnography/Home Sleep Study results: Physician Impression: The quality of the study is fair due to partial loss of pulse oximetry signal. The length of the study is adequate (> 240 minutes). Please also see the tabulated and graphic data. 1. Obstructive Sleep Apnea-Hypopnea (ICD-10 G47.33), severe, with an AHI of 44.4 /hr and dariana SaO2 of 81%. During the study, the patient had 198 apneas (198 obstructive, 0 central, 0 mixed) and 88 hypopneas. The longest episode lasted 100.5 seconds. The patient did not sleep supine during this study (supine AHI was 0, and non-supine, 44.40). 2. Hypoxemia (ICD-10 R09.02), mild, with the lowest oxygen saturation of 81 % and 38.3 minutes with SaO2 under 90%. Baseline oxygen saturation was normal (Average oxygen saturation was 92%). 3. Tachycardia, with maximum recoded heart rate of 144 beats per minute. However, this may be due to the inaccurate pulse oximetry signal. Allergies and Home Medications Home medication list reviewed: Yes (no changes) Review of Systems Review of systems same as previous: Yes (no changes) Physical Exam Heart Rate: 65 O2 Saturation: 98 Height: 6 ft 1 in Weight: 267 lb Body Mass Index: 35.2 BMI Classification: Obese Impression and Plan 1. Obstructive Sleep Apnea-Hypopnea Syndrome, severe, with lowest oxygen saturation of 81%. Obviously this is the cause of the patients symptoms of unrefreshed sleep, and excessive daytime sleepiness. Positive pressure therapy could benefit cardiac disease. As mentioned above, the patient will be started on nasal autoCPAP therapy with pressure set at 4-15 cmH2O. A manual titration study will be completed if unable to find optimal treatment pressure with office adjustments. Compliance guidelines also reviewed. A copy of compliance guidelines will be given for reference at check out. 2. Hypoxemia, mild, with the lowest oxygen saturation of 81 % and 38.3 minutes with SaO2 under 90%. His baseline oxygen saturation was normal with an average oxygen saturation of 92%. 3. Tachycardia, with maximum recorded heart rate of 144 beats per minute. However, this may be due to the inaccurate pulse oximetry signal. * Nasal auto CPAP therapy, pressure at 4-15 cm H2O. * Attempt to lose weight. * Avoid alcohol consumption near bedtime. * Avoid supine sleep until using CPAP. * The patient is again cautioned about driving until sleepiness completely resolves. * Return one month after CPAP obtained. I will assess response to therapy and compliance at that time. Counseling Topics: Weight loss health impact Visit Type: In Office Time Spent with Patient (minutes): 20 Provider Statement: I spent 100% of the Face to Face Visit with the patient with greater than 50% spent counseling the patient and coordination of care.
== END 2020-12-31 11:29 | disposition home or self-care (01) ==
LOC: SC 11:28
PROVIDERS: ATTEND Nurse Practitioner Family
DX: G47.33 Obstructive sleep apnea (adult) (pediatric) (principal); R09.02 Hypoxemia; R00.0 Tachycardia, unspecified; E66.9 Obesity, unspecified; Z68.35 Body mass index [BMI] 35.0-35.9, adult
CPT/HCPCS: 99212; 99213

== ENCOUNTER 2021-05-06 10:49 | Outpatient (CLI) | payer OTHER ==
[2021-05-06 11:31] VITALS: BP 153/74
--- NOTE | 2021-05-06 11:31 | SLEEP CARE CONSULTATION ---
Information from patient questionnaire entered by Maia Woodruff MA. I have reviewed and concur with the information entered by Maia Woodruff MA. This document represents the service I personally performed and the decisions made by , Ruth Ann Stacy ARNP. History of Present Illness Service Date and Time: 05/06/2021 1049 Previous diagnosis: Severe, Obstructive Sleep Apnea-Hypopnea Syndrome AHI: 44.4 Reason for follow up: first compliance (02/14SHALINI) Equipment type: CPAP Equipment obtained from: [employer] (got initial supplies) Mask style: Full face Backup mask available: No (will keep old mask when replaced) Prior sleep studies: No Type of Sleep Study: Home sleep study HPI additional information: MIKEY CÁRDENAS was diagnosed to have severe, AHI 44.4, obstructive sleep apnea-hypopnea syndrome and returned today with young daughter for CPAP therapy first compliance follow-up. Sleep Study - Results Type of Sleep Study: Home sleep study Prior sleep studies: No CPAP Compliance Data - Data Reviewed with Patient Average duration of nightly device use: 6 HOURS 1 MINUTE Compliance rate %: 97 Current pressure setting (cmH2O): 4-15 (median 7.6, avg 12.4, max 13.6) Average residual AHI: 3.9 Central apnea: 1.5 Obstructive apnea: .3 Subjective Missed days of use due to: reports: other (POWER OUTAGES) Patient concerns: denies: aerophagia, mask discomfort, air blowing in eyes, mask leak noise, condensation in mask/hose, nasal congestion, dry mouth, nose, throat, epistaxis, other Observed to snore while using device: No Current pressure setting perceived as: comfortable On therapy, patient: reports: other (not feeling a lot of difference at this point). denies: drowsiness while driving Initial [place] Sleepiness Scale score: 8 (in 2020) Current [place] Sleepiness Scale score: 4 (2021) Allergies and Home Medications Known drug allergies: No Drug allergies reviewed: Yes Home medication list reviewed: Yes (no changes) Review of Systems Review of systems same as previous: Yes (no changes) Physical Exam Vital signs obtained and entered by: Brittany WOODRUFF CMA AALAZ Blood Pressure: 153/74 (RIGHT, PULSE 70) Heart Rate: 63 O2 Saturation: 98 (WITH A N95 MASK) Height: 6 ft 1 in Weight: 260 lb (WITH CLOTHES) Body Mass Index: 34.2 BMI Classification: Obese Impression and Plan 1. Obstructive Sleep Apnea-Hypopnea Syndrome, severe, with good treatment compliance and good apnea control. On CPAP therapy, the patient is not yet feeling a lot of difference with how much he feels rested during the day or energy. He is very compliance and states he has no issues using the mask or CPAP. The patients pressure will be changed to autoCPAP 10-14 cmH20 to reflect pressures being used by patient. Patient advised to contact me if pressure change is uncomfortable so that it can be adjusted. Goals for apnea control discussed. Patient's apnea severity and rationale for treatment to reduce apnea, improve sleep quality and reduce cardiovascular and cerebrovascular events was reviewed. I also reviewed the benefit of consistent device use of CPAP for cardiac disease. Patient has gained weight. Currently patients BMI is 34.2. Obesity increases the risk of apnea, CPAP pressure requirements and overall health risks especially cardiovascular and diabetes. Patient was encouraged to lose weight for their overall health and to reduce apneas. * Change auto CPAP pressure to 10-14 cmH2O * Notify me if snoring with mask or feeling that the pressure is too much or too little * Attempt to lose weight * Call this office if any problems using CPAP * Return for follow up in 1-2 months, or sooner if concerns arise Counseling Topics: Spare mask, Weight loss health impact Visit Type: In Office Time Spent with Patient (minutes): 22 Provider Statement: I spent 100% of the Face to Face Visit with the patient with greater than 50% spent counseling the patient and coordination of care.
== END 2021-05-06 10:50 | disposition home or self-care (01) ==
LOC: SC 10:49
PROVIDERS: ATTEND Nurse Practitioner Family
DX: G47.33 Obstructive sleep apnea (adult) (pediatric) (principal); E66.9 Obesity, unspecified; Z68.34 Body mass index [BMI] 34.0-34.9, adult
CPT/HCPCS: 99212; 99213

== ENCOUNTER 2021-06-17 10:49 | Outpatient (CLI) | payer OTHER ==
[2021-06-17 11:23] VITALS: BP 127/80
--- NOTE | 2021-06-17 11:23 | SLEEP CARE CONSULTATION ---
Information from patient questionnaire entered by Maia Woodruff MA. I have reviewed and concur with the information entered by Maia Woodruff MA. This document represents the service I personally performed and the decisions made by , Ruth Ann Stacy ARNP. History of Present Illness Service Date and Time: 06/17/2021 1049 Previous diagnosis: Severe, Obstructive Sleep Apnea-Hypopnea Syndrome AHI: 44.4 (in 12/2020) Reason for follow up: other (6 WEEKS F/U) Equipment type: CPAP Equipment obtained from: [employer] (not getting supplies, has not talked to DME) Mask style: Full face Backup mask available: No (needs to get supplies) Prior sleep studies: No Type of Sleep Study: Home sleep study HPI additional information: MIKEY CÁRDENAS was diagnosed to have severe, AHI 44.4, obstructive sleep apnea-hypopnea syndrome and returned today for CPAP therapy 6 week with pressure change follow-up. Sleep Study - Results Type of Sleep Study: Home sleep study Prior sleep studies: No CPAP Compliance Data - Data Reviewed with Patient Average duration of nightly device use: 5 HOURS 47 MINUTES Compliance rate %: 93 Current pressure setting (cmH2O): 10-14 Average residual AHI: 2.3 Central apnea: .8 Obstructive apnea: .0 Average large leak: 47.4 Subjective Patient concerns: reports: other (WOULD LIKE THE INTITIAL RAMP SETTING LOWER.). denies: aerophagia, mask discomfort, air blowing in eyes, mask leak noise, condensation in mask/hose, nasal congestion, dry mouth, nose, throat, epistaxis Observed to snore while using device: No Current pressure setting perceived as: comfortable On therapy, patient: reports: sleeping better, more rested overall. denies: drowsiness while driving Initial [place] Sleepiness Scale score: 8 (in 2020) Current [place] Sleepiness Scale score: 5 (2021) Allergies and Home Medications Known drug allergies: Yes Drug allergies reviewed: Yes Home medication list reviewed: Yes (no changes) Allergy and home medication list: Allergies No Known Drug Allergies Allergy (Verified 10/11/20 21:27) Review of Systems Review of systems same as previous: Yes (no changes) Physical Exam Vital signs obtained and entered by: TERRA JUAREZ Blood Pressure: 127/80 (RIGHT, PULSE 58, RESP 16) Heart Rate: 58 O2 Saturation: 97 (PAPER MASK) Height: 6 ft 1 in Weight: 260 lb (PT DOES NOT WANT TO GO ON SCALE) Body Mass Index: 34.2 BMI Classification: Obese Impression and Plan 1. Obstructive Sleep Apnea-Hypopnea Syndrome, severe, with good treatment compliance and good apnea control. On CPAP therapy, the patient has better sleep quality and is more rested overall. Patient states that since his pressure is changed it feels like the pressure starts really high at night. He is able to go to sleep and use the CPAP at night but it is a little uncomfortable until he falls asleep. I checked his settings and it looks like the ramp was turned off. I will turn it back on so that might start at a lower pressure while he is falling asleep. Patient voiced understanding. Patient's apnea severity and rationale for treatment to reduce apnea, improve sleep quality and reduce cardiovascular and cerebrovascular events was reviewed. I also reviewed the benefit of consistent device use of CPAP for cardiac disease. Patient declined to get an updated weight today. I encouraged him to try to lose weight for his overall health. * Continue auto CPAP pressure at 10-14 cmH2O * Notify me if snoring with mask or feeling that the pressure is too much or too little * Attempt to lose weight * Call this office if any problems using CPAP * Return for follow up in 3 months, or sooner if concerns arise Counseling Topics: Spare mask, Weight loss health impact Visit Type: In Office Time Spent with Patient (minutes): 22 Provider Statement: I spent 100% of the Face to Face Visit with the patient with greater than 50% spent counseling the patient and coordination of care.
== END 2021-06-17 10:50 | disposition home or self-care (01) ==
LOC: SC 10:49
PROVIDERS: ATTEND Nurse Practitioner Family
DX: G47.33 Obstructive sleep apnea (adult) (pediatric) (principal); E66.9 Obesity, unspecified; Z68.34 Body mass index [BMI] 34.0-34.9, adult
CPT/HCPCS: 99212; 99213

== ENCOUNTER 2021-10-14 14:48 | Outpatient (CLI) | payer OTHER ==
--- NOTE | 2021-10-14 13:34 | SLEEP CARE CONSULTATION ---
Information from patient questionnaire entered by Maia Woodruff MA. I have reviewed and concur with the information entered by Maia Woodruff MA. This document represents the service I personally performed and the decisions made by , Ruth Ann Stacy ARNP. History of Present Illness Service Date and Time: 10/14/2021 1320 Previous diagnosis: Severe, Obstructive Sleep Apnea-Hypopnea Syndrome AHI: 44.4 Reason for follow up: three month (KURTIS RAINES 02/14/2021,) Equipment type: CPAP Equipment obtained from: [employer] (getting supplies) Mask style: Full face Backup mask available: Yes (other mask) Last cushion change: 2 weeks ago Prior sleep studies: No Type of Sleep Study: Home sleep study HPI additional information: MIKEY CÁRDENAS was diagnosed to have severe, AHI 44.4, obstructive sleep apnea-hypopnea syndrome and returns via video telehealth visit today for CPAP therapy three month follow-up. Sleep Study - Results Type of Sleep Study: Home sleep study Prior sleep studies: No CPAP Compliance Data - Data Reviewed with Patient Average duration of nightly device use: 5 hours 40 minutes Compliance rate %: 90 (07/15/2021-10/12/2021; 90 days; used /) Current pressure setting (cmH2O): 10-14 Average residual AHI: 2.9 Central apnea: .3 Obstructive apnea: .1 Hypopnea: 1.8 Average large leak: 20.1 Subjective Missed days of use due to: reports: travel, other (power outages) Patient concerns: denies: aerophagia, mask discomfort, air blowing in eyes, mask leak noise, condensation in mask/hose, nasal congestion, dry mouth, nose, throat, epistaxis, other Observed to snore while using device: No Current pressure setting perceived as: comfortable On therapy, patient: reports: sleeping better, awakening more refreshed, being more awake and alert during the day, more rested overall. denies: drowsiness while driving Initial [place] Sleepiness Scale score: 8 (in 2020) Current [place] Sleepiness Scale score: 5 Allergies and Home Medications Home medication list reviewed: Yes (no changes) Allergy and home medication list: Allergies No Known Drug Allergies Allergy (Verified 10/11/20 21:27) Review of Systems Review of systems same as previous: Yes (no changes) Physical Exam Height: 6 ft 1 in Impression and Plan 1. Obstructive Sleep Apnea-Hypopnea Syndrome, severe, with good treatment compliance and good apnea control. On CPAP therapy, the patient has better sleep quality and is more rested overall. Patient is happy with current pressure setting and has significant improvement of his sleep apnea. Patient denies problems with oral dryness, nasal congestion, epistaxis, skin irritation or aerophagia. Patient's apnea severity and rationale for treatment to reduce apnea, improve sleep quality and reduce cardiovascular and cerebrovascular events was reviewed. I also reviewed the benefit of consistent device use of CPAP for cardiac disease. * Continue auto CPAP pressure at 10-14 cmH2O * Notify me if snoring with mask or feeling that the pressure is too much or too little * Attempt to lose weight * Call this office if any problems using CPAP * Return for follow up in 6 months, or sooner if concerns arise Counseling Topics: Spare mask, Weight loss health impact Visit Type: Telehealth Video ([phone],) Video Type: D[employer] Patient Location: Home Location of Provider: Office Patient agrees and consents to this telehealth visit type: Yes Patient agrees to have their insurance billed: Yes Time Spent with Patient (minutes): 20 Provider Statement: I spent 100% of the Telehealth Video Call with the patient with greater than 50% spent counseling the patient and coordination of care.
== END 2021-10-14 14:49 | disposition home or self-care (01) ==
LOC: SC 14:48
PROVIDERS: ATTEND Nurse Practitioner Family
DX: G47.33 Obstructive sleep apnea (adult) (pediatric) (principal)